=== PATIENT | female | born 1950 | race Caucasian/White ===

== ENCOUNTER → 2016-07-28 | Outpatient (CLI) | payer MEDICARE ==
[2016-07-28 07:31] LABS: MEAN CORPUSCULAR HEMOGLOBIN 30.9 pg (27.0-33.0); MEAN CORPUSCULAR VOLUME 93.7 fl (80.0-96.0); RED CELL DISTRIBUTION WIDTH 13.4 % (11.5-14.5); WHITE BLOOD COUNT 11.6 K/mm3 (4.0-10.0)
[2016-07-28 07:35] LABS: ALBUMIN 4.2 GM/DL (3.2-5.2); ALKALINE PHOSPHATASE 92 U/L (45-117); ALT/SGPT 22 U/L (12-78); ANION GAP 8 MEQ/L (8-16); AST/SGOT 30 U/L (15-37); BLOOD UREA NITROGEN 5 MG/DL (7-18); CALCIUM LEVEL 9.7 MG/DL (8.8-10.2); CARBON DIOXIDE LEVEL 33 MEQ/L (21-32); CHLORIDE LEVEL 93 MEQ/L (98-107); CREATININE FOR GFR 0.63 MG/DL (0.55-1.02); GLOMERULAR FILTRATION RATE > 60.0 (>45); GLUCOSE, FASTING 88 MG/DL (80-110); POTASSIUM SERUM 4.7 MEQ/L (3.5-5.1); SODIUM LEVEL 134 MEQ/L (136-145); TOTAL PROTEIN 7.7 GM/DL (6.4-8.2)
[2016-07-28 08:07] LABS: BASOPHILS 1 % (0-4); BLAST CELLS 1 % (0-0)
[2016-07-28 08:15] LABS: REASON FOR REVIEW OTHER
== END ==
LOC: M LAB 06:36
PROVIDERS: ATTEND Family Medicine
DX: D47.3 Essential (hemorrhagic) thrombocythemia (principal); D72.829 Elevated white blood cell count, unspecified; R71.8 Other abnormality of red blood cells; R17 Unspecified jaundice

== ENCOUNTER → 2017-04-09 | Outpatient (REF) | payer MEDICARE | LOC: M SFHCLERA 08:46 | PROVIDERS: ATTEND Family Medicine | DX: Z12.11 Encounter for screening for malignant neoplasm of colon (principal); Z53.8 Procedure and treatment not carried out for other reasons ==

== ENCOUNTER → 2017-04-13 | Outpatient (REF) | payer MEDICARE ==
[2017-04-13 14:44] LABS: REASON FOR REVIEW COMPREHENSIVE REVIEW
== END ==
LOC: M LAB REF 13:17
PROVIDERS: ATTEND Internal Medicine Medical Oncology
DX: D75.1 Secondary polycythemia (principal)

== ENCOUNTER → 2017-10-29 | Outpatient (CLI) | payer MEDICARE | LOC: M RAD 07:18 | DX: R91.8 Other nonspecific abnormal finding of lung field (principal) | CPT/HCPCS: 71250 ==

== ENCOUNTER → 2017-11-17 | Outpatient (CLI) | payer MEDICARE | LOC: M PLARAD 09:12 | DX: R91.1 Solitary pulmonary nodule (principal) | CPT/HCPCS: 78815 ==

== ENCOUNTER → 2017-12-11 | Outpatient (CLI) | payer MEDICARE ==
[2017-12-11 13:22] LABS: BASO % 0.1 % (0.0-1.0); EOS % 0.1 % (0.0-3.0); HEMATOCRIT 35.3 % (36.0-47.0); HEMOGLOBIN 12.9 g/dl (12.0-15.5); IMMATURE GRANULOCYTE % 0.5 % (0-3.0); LYMPH # 1.1 10^3/uL (1.5-4.5); LYMPH % 13.3 % (24.0-44.0); MEAN CORPUSCULAR HEMOGLOBIN 43.3 pg (27.0-33.0); MEAN CORPUSCULAR HGB CONC 36.5 g/dl (32.0-36.5); MONO # 0.4 10^3/uL (0.0-0.8); MONO % 4.5 % (0.0-5.0); NEUTROPHILS # 6.7 10^3/uL (1.8-7.7); NEUTROPHILS % 81.5 % (36.0-66.0); PLATELET COUNT, AUTOMATED 281 10^3/uL (150-450); RED BLOOD COUNT 2.98 10^6/uL (4.00-5.40); RED CELL DISTRIBUTION WIDTH 11.8 % (11.5-14.5); WHITE BLOOD COUNT 8.2 10^3/uL (4.0-10.0)
[2017-12-11 13:31] LABS: ADD MORPHOLOGY? YES; MEAN CORPUSCULAR VOLUME 118.5 fl (80.0-96.0); POSITIVE MORPH POS FLAG
[2017-12-11 13:44] LABS: INR 0.93; PROTHROMBIN TIME 12.5 SECONDS (12.4-14.5)
[2017-12-11 13:49] LABS: PLATELET ESTIMATE NORMAL (NORMAL)
[2017-12-11 13:50] LABS: POIKILOCYTOSIS 1+
[2017-12-16 10:36] LABS: URINE METANEPHRINES RANDOM 505 ug/L (Undefined); URINE NORMETANEPHRINES RANDOM 1620 ug/L (Undefined)
== END ==
LOC: M SMT 09:31
DX: R91.1 Solitary pulmonary nodule (principal); E27.8 Other specified disorders of adrenal gland
CPT/HCPCS: 83835

== ENCOUNTER → 2017-12-16 | Outpatient (CLI) | payer MEDICARE ==
[2017-12-20 16:30] LABS: METANEPHRINE PLASMA 68 pg/mL (0-62); NORMETANEPHRINE PLASMA 255 pg/mL (0-145)
== END ==
LOC: M LAB 06:26
DX: R91.1 Solitary pulmonary nodule (principal)
CPT/HCPCS: 83835

== ENCOUNTER 2017-12-23 11:31 | Inpatient (IN) | payer MEDICARE ==
[2017-12-23] MEDS: NS 1,000 ML IV ×4 (11:40→23:42)
[2017-12-23 11:56] LABS: HEMATOCRIT 31.4 % (36.0-47.0); HEMOGLOBIN 11.1 g/dl (12.0-15.5); MEAN CORPUSCULAR HGB CONC 35.4 g/dl (32.0-36.5); PLATELET COUNT, AUTOMATED 374 10^3/uL (150-450); RED BLOOD COUNT 2.64 10^6/uL (4.00-5.40); WHITE BLOOD COUNT 5.3 10^3/uL (4.0-10.0)
[2017-12-23] MEDS: ONDANSETRON 4MG/2ML VIAL (J2405) IV (11:57)
[2017-12-23 12:06] LABS: INR 0.89; PROTHROMBIN TIME 12.1 SECONDS (12.1-14.4)
[2017-12-23 12:07] LABS: PARTIAL THROMBOPLASTIN TIME 22.3 SECONDS (25.4-37.6)
[2017-12-23] MEDS: MORPHINE 2 MG/ML 1ML SYRINGE (J2270) IV ×2 (12:07→12:50)
[2017-12-23 12:10] LABS: MEAN CORPUSCULAR VOLUME 118.9 fl (80.0-96.0); POSITIVE MORPH POS FLAG
[2017-12-23 12:15] LABS: ANION GAP 8 MEQ/L (8-16); BLOOD UREA NITROGEN 6 MG/DL (7-18); CALCIUM LEVEL 8.9 MG/DL (8.8-10.2); CARBON DIOXIDE LEVEL 30 MEQ/L (21-32); CHLORIDE LEVEL 99 MEQ/L (98-107); CREATININE FOR GFR 0.51 MG/DL (0.55-1.30); GLOMERULAR FILTRATION RATE > 60.0 (>45); GLUCOSE, FASTING 138 MG/DL (70-100); POTASSIUM SERUM 3.3 MEQ/L (3.5-5.1); SODIUM LEVEL 137 MEQ/L (136-145)
[2017-12-23] MEDS ORDERED: ACETAMINOPHEN TAB 650MG DOSE (2X325MG) PO (14:15)
[2017-12-23] MEDS ORDERED: ONDANSETRON 4MG/2ML VIAL (J2405) IV (14:15)
[2017-12-23] MEDS ORDERED: BISACODYL 5 MG TAB PO (14:15)
[2017-12-23] MEDS ORDERED: MORPHINE 4 MG/ML 1ML VIAL/SYRINGE (J2270) IV (14:15)
[2017-12-23] MEDS ORDERED: IPRATROPIUM 0.5MG/ALBUTEROL 2.5MG INH SOL UD 3ML (DUONEB)(J7620) NEB (14:45)
[2017-12-23 15:43] LABS: HEMATOCRIT 25.1 % (36.0-47.0); HEMOGLOBIN 8.7 g/dl (12.0-15.5); MEAN CORPUSCULAR HEMOGLOBIN 41.8 pg (27.0-33.0); MEAN CORPUSCULAR HGB CONC 34.7 g/dl (32.0-36.5); PLATELET COUNT, AUTOMATED 288 10^3/uL (150-450); RED BLOOD COUNT 2.08 10^6/uL (4.00-5.40); WHITE BLOOD COUNT 7.4 10^3/uL (4.0-10.0)
[2017-12-23 15:58] LABS: MEAN CORPUSCULAR VOLUME 120.7 fl (80.0-96.0); POSITIVE MORPH POS FLAG
[2017-12-23] MEDS: POTASSIUM CHLORIDE 10 MEQ SR TABLET PO (17:35)
[2017-12-23 19:51] LABS: HEMATOCRIT 23.1 % (36.0-47.0); HEMOGLOBIN 8.2 g/dl (12.0-15.5); MEAN CORPUSCULAR HEMOGLOBIN 42.5 pg (27.0-33.0); MEAN CORPUSCULAR HGB CONC 35.5 g/dl (32.0-36.5); PLATELET COUNT, AUTOMATED 272 10^3/uL (150-450); RED BLOOD COUNT 1.93 10^6/uL (4.00-5.40); RED CELL DISTRIBUTION WIDTH 12.1 % (11.5-14.5); WHITE BLOOD COUNT 6.5 10^3/uL (4.0-10.0)
[2017-12-23 19:54] LABS: POSITIVE MORPH POS FLAG
[2017-12-23 19:55] LABS: MEAN CORPUSCULAR VOLUME 119.7 fl (80.0-96.0)
[2017-12-23] MEDS: SIMVASTATIN 40 MG TAB PO (20:20)
[2017-12-23] MEDS: CETIRIZINE (ZyrTEC) 10 MG TAB PO (20:20)
[2017-12-23] MEDS: SENOKOT S TAB PO (20:20)
[2017-12-24 02:01] LABS: HEMATOCRIT 22.7 % (36.0-47.0); HEMOGLOBIN 7.8 g/dl (12.0-15.5); MEAN CORPUSCULAR HEMOGLOBIN 41.9 pg (27.0-33.0); MEAN CORPUSCULAR HGB CONC 34.4 g/dl (32.0-36.5); PLATELET COUNT, AUTOMATED 266 10^3/uL (150-450); RED BLOOD COUNT 1.86 10^6/uL (4.00-5.40); RED CELL DISTRIBUTION WIDTH 12.4 % (11.5-14.5); WHITE BLOOD COUNT 6.2 10^3/uL (4.0-10.0)
[2017-12-24 02:03] LABS: POSITIVE MORPH POS FLAG
[2017-12-24 02:16] LABS: ANION GAP 6 MEQ/L (8-16); BLOOD UREA NITROGEN 8 MG/DL (7-18); CARBON DIOXIDE LEVEL 28 MEQ/L (21-32); CHLORIDE LEVEL 106 MEQ/L (98-107); CREATININE FOR GFR 0.47 MG/DL (0.55-1.30); GLOMERULAR FILTRATION RATE > 60.0 (>45); GLUCOSE, FASTING 82 MG/DL (70-100); POTASSIUM SERUM 4.6 MEQ/L (3.5-5.1); SODIUM LEVEL 140 MEQ/L (136-145)
[2017-12-24 02:17] LABS: CALCIUM LEVEL 8.1 MG/DL (8.8-10.2)
[2017-12-24 08:13] LABS: HEMATOCRIT 22.4 % (36.0-47.0); HEMOGLOBIN 7.8 g/dl (12.0-15.5); MEAN CORPUSCULAR HEMOGLOBIN 42.4 pg (27.0-33.0); MEAN CORPUSCULAR HGB CONC 34.8 g/dl (32.0-36.5); PLATELET COUNT, AUTOMATED 287 10^3/uL (150-450); RED BLOOD COUNT 1.84 10^6/uL (4.00-5.40); RED CELL DISTRIBUTION WIDTH 12.5 % (11.5-14.5); WHITE BLOOD COUNT 5.7 10^3/uL (4.0-10.0)
[2017-12-24 08:14] LABS: MEAN CORPUSCULAR VOLUME 121.7 fl (80.0-96.0); POSITIVE MORPH POS FLAG
[2017-12-24] MEDS: HYDROXYUREA 500 MG CAP PO (09:00)
[2017-12-24] MEDS: SENOKOT S TAB PO (09:00)
[2017-12-24] MEDS: CHLORTHALIDONE 25 MG TAB PO (09:32)
[2017-12-24] MEDS: NS 1,000 ML IV ×2 (09:58→20:04)
[2017-12-24 13:53] LABS: HEMATOCRIT 22.4 % (36.0-47.0); HEMOGLOBIN 7.9 g/dl (12.0-15.5); MEAN CORPUSCULAR HEMOGLOBIN 43.4 pg (27.0-33.0); MEAN CORPUSCULAR HGB CONC 35.3 g/dl (32.0-36.5); PLATELET COUNT, AUTOMATED 286 10^3/uL (150-450); RED BLOOD COUNT 1.82 10^6/uL (4.00-5.40); RED CELL DISTRIBUTION WIDTH 12.3 % (11.5-14.5); WHITE BLOOD COUNT 6.5 10^3/uL (4.0-10.0)
[2017-12-24 13:56] LABS: MEAN CORPUSCULAR VOLUME 123.1 fl (80.0-96.0); POSITIVE MORPH POS FLAG
[2017-12-24 20:00] LABS: HEMATOCRIT 20.7 % (36.0-47.0); HEMOGLOBIN 7.3 g/dl (12.0-15.5); MEAN CORPUSCULAR HEMOGLOBIN 42.7 pg (27.0-33.0); MEAN CORPUSCULAR HGB CONC 35.3 g/dl (32.0-36.5); PLATELET COUNT, AUTOMATED 288 10^3/uL (150-450); RED BLOOD COUNT 1.71 10^6/uL (4.00-5.40); RED CELL DISTRIBUTION WIDTH 12.3 % (11.5-14.5); WHITE BLOOD COUNT 5.9 10^3/uL (4.0-10.0)
[2017-12-24 20:06] LABS: MEAN CORPUSCULAR VOLUME 121.1 fl (80.0-96.0); POSITIVE MORPH POS FLAG
[2017-12-24] MEDS: SIMVASTATIN 40 MG TAB PO (20:11)
[2017-12-24] MEDS: CETIRIZINE (ZyrTEC) 10 MG TAB PO (20:11)
[2017-12-25 02:04] LABS: HEMOGLOBIN 7.3 g/dl (12.0-15.5); MEAN CORPUSCULAR HEMOGLOBIN 42.7 pg (27.0-33.0); MEAN CORPUSCULAR HGB CONC 34.8 g/dl (32.0-36.5); PLATELET COUNT, AUTOMATED 256 10^3/uL (150-450); RED BLOOD COUNT 1.71 10^6/uL (4.00-5.40); RED CELL DISTRIBUTION WIDTH 12.5 % (11.5-14.5); WHITE BLOOD COUNT 5.1 10^3/uL (4.0-10.0)
[2017-12-25 02:08] LABS: POSITIVE MORPH POS FLAG
[2017-12-25 02:09] LABS: MEAN CORPUSCULAR VOLUME 122.8 fl (80.0-96.0)
[2017-12-25] MEDS: NS 1,000 ML IV ×2 (06:02→16:09)
[2017-12-25 07:36] LABS: HEMATOCRIT 22.9 % (36.0-47.0); MEAN CORPUSCULAR HEMOGLOBIN 42.8 pg (27.0-33.0); MEAN CORPUSCULAR HGB CONC 34.9 g/dl (32.0-36.5); PLATELET COUNT, AUTOMATED 318 10^3/uL (150-450); RED BLOOD COUNT 1.87 10^6/uL (4.00-5.40); RED CELL DISTRIBUTION WIDTH 12.6 % (11.5-14.5); WHITE BLOOD COUNT 5.1 10^3/uL (4.0-10.0)
[2017-12-25] MEDS: CHLORTHALIDONE 25 MG TAB PO (08:12)
[2017-12-25] MEDS: HYDROXYUREA 500 MG CAP PO (08:12)
[2017-12-25 08:25] LABS: MEAN CORPUSCULAR VOLUME 122.5 fl (80.0-96.0); POSITIVE MORPH POS FLAG
[2017-12-25 12:14] LABS: HEMATOCRIT 20.8 % (36.0-47.0); HEMOGLOBIN 7.3 g/dl (12.0-15.5)
[2017-12-25 18:02] LABS: HEMATOCRIT 23.8 % (36.0-47.0); HEMOGLOBIN 8.2 g/dl (12.0-15.5)
[2017-12-25] MEDS: CETIRIZINE (ZyrTEC) 10 MG TAB PO (20:25)
[2017-12-25] MEDS: SIMVASTATIN 40 MG TAB PO (20:25)
[2017-12-25 23:50] LABS: HEMATOCRIT 20.1 % (36.0-47.0)
[2017-12-26] MEDS: NS 1,000 ML IV (01:45)
[2017-12-26 05:19] LABS: HEMATOCRIT 20.9 % (36.0-47.0); HEMOGLOBIN 7.2 g/dl (12.0-15.5); MEAN CORPUSCULAR HEMOGLOBIN 41.9 pg (27.0-33.0); MEAN CORPUSCULAR HGB CONC 34.4 g/dl (32.0-36.5); PLATELET COUNT, AUTOMATED 295 10^3/uL (150-450); RED BLOOD COUNT 1.72 10^6/uL (4.00-5.40); RED CELL DISTRIBUTION WIDTH 12.3 % (11.5-14.5); WHITE BLOOD COUNT 3.7 10^3/uL (4.0-10.0)
[2017-12-26 05:28] LABS: MEAN CORPUSCULAR VOLUME 121.5 fl (80.0-96.0); POSITIVE MORPH POS FLAG
[2017-12-26 05:34] LABS: ANION GAP 7 MEQ/L (8-16); BLOOD UREA NITROGEN 2 MG/DL (7-18); CALCIUM LEVEL 7.9 MG/DL (8.8-10.2); CARBON DIOXIDE LEVEL 29 MEQ/L (21-32); CHLORIDE LEVEL 107 MEQ/L (98-107); CREATININE FOR GFR 0.39 MG/DL (0.55-1.30); GLOMERULAR FILTRATION RATE > 60.0 (>45); GLUCOSE, FASTING 84 MG/DL (70-100); POTASSIUM SERUM 3.5 MEQ/L (3.5-5.1); SODIUM LEVEL 143 MEQ/L (136-145)
[2017-12-26] MEDS: CHLORTHALIDONE 25 MG TAB PO (08:09)
== END 2017-12-26 10:25 | disposition home or self-care (01) | DRG 920 ==
LOC: M ED 11:31 → M ED INP 14:09 → M PCU 16:13
DX: E89.810 Postprocedural hemorrhage of an endocrine system organ or structure following an endocrine system procedure (principal); D47.1 Chronic myeloproliferative disease; D62 Acute posthemorrhagic anemia; E27.8 Other specified disorders of adrenal gland; R91.8 Other nonspecific abnormal finding of lung field; Z88.1 Allergy status to other antibiotic agents; Z79.82 Long term (current) use of aspirin; Z79.899 Other long term (current) drug therapy; D45 Polycythemia vera; E78.5 Hyperlipidemia, unspecified; J44.9 Chronic obstructive pulmonary disease, unspecified; I10 Essential (primary) hypertension; Z88.8 Allergy status to other drugs, medicaments and biological substances; E87.6 Hypokalemia; R58 Hemorrhage, not elsewhere classified
CPT/HCPCS: 49180

== ENCOUNTER → 2017-12-23 | Outpatient (CLI) | payer MEDICARE ==
[~2017-12-23] MED LIST: ACETAMINOPHEN 325 MG TAB As Ordered; LIDOCAINE 1% MDV 20ML VIAL As Ordered
== END ==
LOC: M RADPRO 08:01
DX: E27.8 Other specified disorders of adrenal gland (principal); R91.8 Other nonspecific abnormal finding of lung field; K66.1 Hemoperitoneum; Z88.1 Allergy status to other antibiotic agents; Z79.82 Long term (current) use of aspirin; Z79.899 Other long term (current) drug therapy

== ENCOUNTER → 2018-01-01 | Outpatient (CLI) | payer MEDICARE | LOC: M RAD 06:49 | DX: R91.8 Other nonspecific abnormal finding of lung field (principal); J98.4 Other disorders of lung | CPT/HCPCS: 71250 ==

== ENCOUNTER → 2018-03-15 | Outpatient (CLI) | payer MEDICARE | LOC: M RAD 06:49 | DX: R91.1 Solitary pulmonary nodule (principal) | CPT/HCPCS: 71250 ==

== ENCOUNTER → 2018-06-03 | Outpatient (CLI) | payer MEDICARE | LOC: M RAD 06:48 | DX: R91.8 Other nonspecific abnormal finding of lung field (principal); J84.10 Pulmonary fibrosis, unspecified; I25.10 Atherosclerotic heart disease of native coronary artery without angina pectoris | CPT/HCPCS: 71250 ==

== ENCOUNTER → 2018-09-22 | Outpatient (CLI) | payer MEDICARE ==
[~2018-09-22] MED LIST changes: -ACETAMINOPHEN 325 MG TAB As Ordered; +ASPI1TAB PO; +CETI10TA PO; +CHLO25TA PO; +HYDR500C3; +HYDR500C3 PO; -LIDOCAINE 1% MDV 20ML VIAL As Ordered; +LOVA20TA2 PO; +LOVA40TA PO
--- NOTE | 2018-09-22 11:10 | REP ---
CT CHEST WITHOUT CONTRAST: HISTORY: Nonspecific abnormal lung field finding. Cough. Comparison is made with multiple prior chest CT studies, the most recent of which is from June 03, 2018 and a more remote of which is from April 17, 2017. A gradually enlarging spiculated thick-walled cavitary right lower lobe lesion has been present. TODAY'S CT FINDINGS: The thick-walled spiculated cavitary mass is again seen in the right lower lobe. Its current transverse dimensions are 5.6 x 5.2 cm, most recently 4.8 x 4.6 cm. There is some continued enlargement. Adjacent fibrotic spicules are seen extending to the posterolateral pleural surface. No satellite nodules appreciated. There is some coarse linear fibrosis in the right base which is unchanged. No bony destructive lesion is seen. No new pulmonary nodule or infiltrate is seen. Emphysematous changes and hyperinflation are noted. Vascular calcification is noted. No hilar or mediastinal mass or adenopathy is seen. The previously noted left adrenal mass has further enlarged. Most recent transverse dimensions were 3.7 x 3.[address]'s [address] study the left adrenal mass measures 5.0 x 3.8 cm. No right adrenal mass lesion is seen. There is an accessory splenule anterior to the spleen. No focal liver lesion is appreciated. IMPRESSION: Continued progressive enlargement of the left adrenal mass and right lower lobe lung mass. Electronically Signed by Yosef Monet MD 09/22/2018 03:56 P
== END ==
LOC: M RAD 07:52
PROVIDERS: ATTEND Internal Medicine Pulmonary Disease
DX: R91.8 Other nonspecific abnormal finding of lung field (principal); R05 Cough; J84.10 Pulmonary fibrosis, unspecified; E27.8 Other specified disorders of adrenal gland

== ENCOUNTER → 2018-10-11 | Outpatient (CLI) | payer MEDICARE ==
[~2018-10-11] MED LIST changes: -ASPI1TAB PO; +ASPI81TA26 PO
[2018-10-15 00:06] LABS: METANEPHRINE PLASMA 51 pg/mL (0-62); NORMETANEPHRINE PLASMA 257 pg/mL (0-145)
== END ==
LOC: M SMT 09:58
PROVIDERS: ATTEND Internal Medicine Pulmonary Disease
DX: R91.8 Other nonspecific abnormal finding of lung field (principal)

== ENCOUNTER → 2018-10-19 | Outpatient (CLI) | payer MEDICARE ==
[~2018-10-19] MED LIST changes: +ATIV1TAB10 PO
[2018-10-19 15:27] LABS: BLOOD UREA NITROGEN 7 MG/DL (7-18); CALCIUM LEVEL 9.4 MG/DL (8.8-10.2); CARBON DIOXIDE LEVEL 32 MEQ/L (21-32); CHLORIDE LEVEL 98 MEQ/L (98-107); CREATININE FOR GFR 0.54 MG/DL (0.55-1.30); GLOMERULAR FILTRATION RATE > 60.0 (>45); GLUCOSE, FASTING 88 MG/DL (70-100); POTASSIUM SERUM 4.5 MEQ/L (3.5-5.1); SODIUM LEVEL 136 MEQ/L (136-145)
== END ==
LOC: M SMT 10:18
PROVIDERS: ATTEND Urology
DX: E27.9 Disorder of adrenal gland, unspecified (principal)
CPT/HCPCS: 36415; 80048; G0463

== ENCOUNTER → 2018-10-25 | Outpatient (CLI) | payer MEDICARE ==
[~2018-10-25] MED LIST changes: -ATIV1TAB10 PO; +ISOVUE-370 76% 100ML VIAL (Q9967) As Ordered ONE
--- NOTE | 2018-10-25 17:02 | REP ---
REASON: Adrenal gland mass. The latest prior or images obtained during chest CT 09/22/2018 which were reviewed along with older prior abdominal CT's. The examination was performed before and after intravenous contrast. CONTRAST: 100 mL Isovue-370. The lung bases are unchanged from the prior chest CT. The precontrast enhanced Hounsfield unit readings of the large left adrenal gland mass which measures approximately 5.6 x 4.7 x 4.4 cm are consistently high. All recent literature indicate that the highest Hounsfield unit reading on precontrast imaging to indicate benignity of adrenal glands nodules is a positive 16. Although there is some debate on how high this noncontrast enhanced reading can go and still indicate benignity, it is clear that as density increases so do the possibility of malignancy when assessing precontrast enhanced images. The contrast enhanced portion of today's examination shows mixed peripheral enhancement with no evidence of significant internal enhancement when Hounsfield unit readings are compared to precontrast imaging. There is no paraaortic adenopathy. There is no free fluid or free air. The liver, gallbladder, spleen, pancreas, right adrenal gland and kidney's are within normal limits. The bowel loops and their mesenteries are within normal limits. CT PELVIS: There is no free fluid or free air. There is no mass or adenopathy. The bowel loops and their mesenteries are within normal limits. Bone window technique throughout the examination shows the osseous structures to be stable and intact. Spinal degenerative changes are present. IMPRESSION: Large left adrenal gland mass as described above. The lack of evidence of significant contrast enhancement does not obviate biopsy or further assessment. This was discussed in detail above. Electronically Signed by Arvin Boyd DO 10/25/2018 06:05 P
== END ==
LOC: M RAD 07:54
PROVIDERS: ATTEND Urology
DX: E27.8 Other specified disorders of adrenal gland (principal)
CPT/HCPCS: 74178; Q9967

== ENCOUNTER → 2018-11-24 | Outpatient (REF) | payer MEDICARE ==
[~2018-11-24] MED LIST changes: +ATIV1TAB10 PO; -ISOVUE-370 76% 100ML VIAL (Q9967) As Ordered ONE
[2018-11-24 12:17] LABS: SODIUM,RANDOM URINE 45 MEQ/L
[2018-11-24 12:26] LABS: BLOOD UREA NITROGEN 8 MG/DL (7-18); CALCIUM LEVEL 9.2 MG/DL (8.8-10.2); CARBON DIOXIDE LEVEL 30 MEQ/L (21-32); CHLORIDE LEVEL 100 MEQ/L (98-107); CREATININE FOR GFR 0.44 MG/DL (0.55-1.30); GLOMERULAR FILTRATION RATE > 60.0 (>45); GLUCOSE, FASTING 87 MG/DL (70-100); POTASSIUM SERUM 4.9 MEQ/L (3.5-5.1); SODIUM LEVEL 136 MEQ/L (136-145)
[2018-11-24 12:54] LABS: OSMOLALITY SERUM 281 MOSM/KG (280-301)
[2018-11-24 12:55] LABS: OSMOLALITY URINE 578 MOSM/KG (500-800)
== END ==
LOC: M SFHCLERA 08:19
PROVIDERS: ATTEND Family Medicine
DX: E87.1 Hypo-osmolality and hyponatremia (principal)

== ENCOUNTER 2018-11-30 07:21 | Inpatient (IN) | payer MEDICARE ==
[~2018-11-30] VITALS: Ht 152.4 cm; Wt 43.1 kg
[~2018-11-30 07:21] MED LIST changes: +LR 1,000 ML IV ONE
[2018-11-30] MEDS ORDERED: fentaNYL 250 MCG/5 ML INJECTION (J3010) As Ordered ONE (07:22)
[2018-11-30] MEDS ORDERED: ROCURONIUM BROMIDE 50 MG/5 ML VIAL As Ordered ONE ×2 (07:22→11:27)
[2018-11-30] MEDS ORDERED: MIDAZOLAM INJ 2 MG/2 ML VIAL (J2250) As Ordered ONE (07:22)
[2018-11-30] MEDS ORDERED: LIDOCAINE 2% INJ 100 MG/5 ML SDV (FOR ANES.) As Ordered ONE (07:22)
[2018-11-30] MEDS ORDERED: PROPOFOL 200 MG/20 ML VIAL As Ordered ONE (07:22)
[2018-11-30] MEDS ORDERED: ONDANSETRON 4MG/2ML VIAL (J2405) IV PRN ×2 (08:45→14:30)
[2018-11-30] MEDS ORDERED: ACETAMINOPHEN TAB 650MG DOSE (2X325MG) PO PRN (08:45)
[2018-11-30] MEDS ORDERED: MORPHINE 4 MG/ML 1ML VIAL/SYRINGE (J2270) IV PRN (08:45)
[2018-11-30] MEDS ORDERED: PERCOCET 5MG/325MG TAB PO PRN ×2 (08:45→14:30)
[2018-11-30] MEDS ORDERED: ETOMIDATE INJ 20MG/10ML VIAL As Ordered ONE (08:58)
[2018-11-30] MEDS ORDERED: PHENYLEPHRINE INJ 10MG/ML VIAL (J2370) As Ordered ONE ×2 (08:59→09:00)
[2018-11-30] MEDS ORDERED: LIDOCAINE 1% SDV INJ 30 ML VIAL As Ordered ONE (09:07)
[2018-11-30] MEDS ORDERED: BUPIVACAINE HCL 0.25% 30 ML VIAL As Ordered ONE (09:07)
[2018-11-30] MEDS ORDERED: PHENYLephrine HCL 500 MCG/5 ML (100MCG/ML) SYRINGE (J2370) As Ordered ONE (09:50)
[2018-11-30] MEDS ORDERED: ePHEDrine SULFATE 25 MG/5 ML(5MG/ML) SYRINGE As Ordered ONE (09:50)
[2018-11-30] MEDS ORDERED: dexameTHASONE 4 MG/ML 1ML VIAL (J1100) As Ordered ONE (09:50)
[2018-11-30] MEDS ORDERED: ESMOLOL INJ 100MG/10ML VIAL As Ordered ONE (10:04)
[2018-11-30] MEDS ORDERED: LABETALOL HCL 100 MG/20 ML VIAL As Ordered ONE (10:10)
[2018-11-30] MEDS ORDERED: HYDROmorphone HCL 2 MG/ML 1ML VIAL (J1170) As Ordered ONE (10:58)
[2018-11-30] MEDS ORDERED: ONDANSETRON 4MG/2ML VIAL (J2405) As Ordered ONE (11:34)
[2018-11-30] MEDS ORDERED: NEOSTIGMINE 10 MG/10 ML VIAL (J2710) As Ordered ONE ×2 (11:34→11:35)
[2018-11-30] MEDS ORDERED: KETOROLAC 60 MG/2 ML VIAL (J1885) As Ordered ONE (11:34)
[2018-11-30] MEDS ORDERED: GLYCOPYRROLATE INJ 0.2 MG/ML 2 ML VIAL As Ordered ONE (11:35)
[2018-11-30] MEDS ORDERED: METOCLOPRAMIDE INJ 10MG/2ML VIAL (J2765) As Ordered ONE (11:40)
[2018-11-30] MEDS ORDERED: MORPHINE 10 MG/ML 1ML VIAL (J2270) IV PRN (14:30)
[2018-11-30] MEDS ORDERED: fentaNYL 100 MCG/2 ML INJECTION (J3010) IV PRN (14:30)
[2018-11-30] MEDS ORDERED: LR 1,000 ML IV SCH (14:30)
--- NOTE | 2018-11-30 14:53 | ROOPDOC ---
[facility] Report Of Operation Report of Operation DATE OF PROCEDURE: 11/30/18 PREPROCEDURE DIAGNOSES: Left Adrenal Neoplasm. POSTPROCEDURE DIAGNOSES: Left Adrenal Neoplasm. PROCEDURE: Left Robotic-assisted Laparoscopic Radical Adrenalectomy. SURGEON: Sneha Hidalgo MD MANUFACTURING JOB TITLES: Chloe Gutierrez NP ANESTHESIA: General OPERATIVE INDICATIONS: This is a 67 year old female with a 5cm enhancing left adrenal mass, here for the above procedure. DESCRIPTION OF PROCEDURE: The patient was brought to the operating room and general anesthesia was induced. Prophylactic antibiotics were infused. A Hill catheter was placed under sterile conditions. The patient was then placed in the right lateral decubitus position. All pressure points were appropriately padded and an axillary roll was placed. She was secured to the table with tape. The patient was then prepped and draped in the usual sterile fashion. The initial incision was for an 8mm port in line with the 11th rib along the lateral rectus margin. A Veress needle was then utilized to achieve the pneumoperitoneum. An 8mm port was then placed in through this incision and through which the camera was inserted. There were no injuries from Veress needle placement or initial trocar placement. The remaining ports were then placed under vision. The left hand robotic port was placed along the costal margin. Another 8mm robotic port was placed just inferior to the camera port, also on the lateral rectus margin. The right hand robotic port was placed between the anterior-superior iliac spine and the umbilicus. A 12mm logistics assistant port was placed inferior and medial to the camera port. The robot was then docked. We began by releasing adhesions between the left colon and the anterior abdominal wall. Next the left colon was dissected off of Gerota's fascia. At this point the gonadal was identified. It was dissected cephalad to the point where it inserted into the left renal vein. The left renal vein was then carefully dissected. Of note the large left adrenal mass readily seen upon entering the abdomen. I then dissected out 3 left adrenal veins while dissecting out the adrenal gland and mass. This was challenging due to a large amount of tissue edema and inflammation surrounding the adrenal gland. Each adrenal vein was then ligated with Weck clips and the Harmonic scalpel. Two Weck clips were left on the stay side each time. Once all the veins were taken, the left adrenal gland was then dissected on all sides using electrocautery and the Harmonic scalpel until it was completely free. The left adrenal mass appeared to be confined to the adrenal gland. Once the left adrenal was free, it was placed in an Endocatch bag for retrieval. The area of resection was then irrigated with normal saline and Elvira hemostatic agent was applied to the operative field. Hemostasis was excellent. Once done, the robot was undocked. We then extended the logistics assistant port site incision and dissected down to the fascia. The fascia was then extended using electrocautery. The muscle was bluntly spread. The specimen was then extracted through this incision. It was handed off the table to send for pathology. We then closed the fascia of the extraction incision using a running #0 Vicryl suture. At this point, the abdomen was reinsufflated and we looked back in with the camera and there was no bleeding underneath the extraction site. No abdominal contents were caught within the closure either. We then removed all the ports under direct vision and there was no bleeding from any of the port sites. The subcutaneous tissue of the extraction incision was then reapproximated using interrupted #3-0 Vicryl suture. We then closed the skin of each site using a running #4-0 subcuticular Monocryl stitch. Local anesthetic was then applied to each incision and Dermabond was then applied and this marked the conclusion of the procedure. The patient was then taken out of the left lateral decubitus position, awakened from anesthesia and transported to the recovery room in stable condition. ESTIMATED BLOOD LOSS: 5 mL INTRAOPERATIVE COMPLICATIONS: None SPECIMENS: Left adrenal gland PLAN: The patient will be admitted to the hospital postoperatively and she will likely be discharged home within the next 1-2 days. SNEHA HIDALGO MD Nov 30, 2018 14:53
[2018-11-30 14:55] LABS: BLOOD UREA NITROGEN 13 MG/DL (7-18); CALCIUM LEVEL 9.2 MG/DL (8.8-10.2); CARBON DIOXIDE LEVEL 25 MEQ/L (21-32); CHLORIDE LEVEL 102 MEQ/L (98-107); CREATININE FOR GFR 0.58 MG/DL (0.55-1.30); GLOMERULAR FILTRATION RATE > 60.0 (>45); GLUCOSE, FASTING 155 MG/DL (70-100); POTASSIUM SERUM 4.8 MEQ/L (3.5-5.1); SODIUM LEVEL 135 MEQ/L (136-145)
[2018-11-30 15:01] LABS: HEMATOCRIT 38.4 % (36.0-47.0); HEMOGLOBIN 12.8 g/dl (12.0-15.5); MEAN CORPUSCULAR HEMOGLOBIN 39.3 pg (27.0-33.0); MEAN CORPUSCULAR HGB CONC 33.3 g/dl (32.0-36.5); PLATELET COUNT, AUTOMATED 567 10^3/uL (150-450); RED BLOOD COUNT 3.26 10^6/uL (4.00-5.40); WHITE BLOOD COUNT 7.9 10^3/uL (4.0-10.0)
[2018-11-30 15:16] VITALS: BP 145/90
[2018-11-30 15:16] LABS: MEAN CORPUSCULAR VOLUME 117.8 fl (80.0-96.0)
[2018-11-30] MEDS: NS 1,000 ML IV SCH ×2 (15:27→17:50)
[2018-11-30] MEDS: DOCUSATE SODIUM 100 MG CAP PO SCH ×2 (15:28→22:18)
[2018-11-30] MEDS: HEPARIN SOD (PORCINE) 5000 UNITS/ML VIAL SC SCH ×2 (15:28→22:18)
[2018-11-30 15:38] VITALS: BP 135/66
[2018-11-30 17:03] VITALS: BP 145/72
[2018-11-30] MEDS: ceFAZolin SOD 1 GM in D5W MINI-BAG PLUS 50 ML IV SCH (17:50)
[2018-11-30 17:51] VITALS: BP 146/73
[2018-11-30 18:41] VITALS: BP 146/74
[2018-11-30 20:00] VITALS: BP 147/74
[2018-12-01] VITALS (7 sets, daily range): BP systolic 93–147; BP diastolic 52–72
[2018-12-01] MEDS: NS 1,000 ML IV SCH (02:21)
[2018-12-01] MEDS: ceFAZolin SOD 1 GM in D5W MINI-BAG PLUS 50 ML IV SCH (02:21)
[2018-12-01] MEDS: PERCOCET 5MG/325MG TAB PO PRN ×2 (02:21→08:32)
[2018-12-01] MEDS: HEPARIN SOD (PORCINE) 5000 UNITS/ML VIAL SC SCH ×3 (05:16→20:59)
[2018-12-01 06:00] LABS: HEMATOCRIT 34.3 % (36.0-47.0); HEMOGLOBIN 11.7 g/dl (12.0-15.5); MEAN CORPUSCULAR HEMOGLOBIN 39.3 pg (27.0-33.0); MEAN CORPUSCULAR HGB CONC 34.1 g/dl (32.0-36.5); PLATELET COUNT, AUTOMATED 585 10^3/uL (150-450); RED BLOOD COUNT 2.98 10^6/uL (4.00-5.40); WHITE BLOOD COUNT 7.9 10^3/uL (4.0-10.0)
[2018-12-01 06:05] LABS: MEAN CORPUSCULAR VOLUME 115.1 fl (80.0-96.0)
[2018-12-01 06:31] LABS: BLOOD UREA NITROGEN 10 MG/DL (7-18); CALCIUM LEVEL 7.8 MG/DL (8.8-10.2); CARBON DIOXIDE LEVEL 24 MEQ/L (21-32); CHLORIDE LEVEL 103 MEQ/L (98-107); CREATININE FOR GFR 0.47 MG/DL (0.55-1.30); GLOMERULAR FILTRATION RATE > 60.0 (>45); GLUCOSE, FASTING 90 MG/DL (70-100); POTASSIUM SERUM 3.8 MEQ/L (3.5-5.1); SODIUM LEVEL 136 MEQ/L (136-145)
--- NOTE | 2018-12-01 07:39 | IPNPDOC ---
Subjective Review oF Systems Chief Complaint The patient is a 68-year-old female admitted with a reason for visit of Left Adrenal Mass. Events since Last Encounter Patient started having difficulty word-finding/slurred speech o/n and through this morning. Her notes that this has happened on and off for the past month but seems more exaggerated this morning. They have not alerted anyone of this prior to this morning. She notes that her pain is not well-controlled, but her pain medications have been limited given the difficulty talking. She has not ambulated yet. Denies n/v. No f/c/ns. Objective Physical Examination General Exam: Cooperative, No Acute Distress Heart Exam: Positive: Regular Rhythm ABDOMEN EXAM: Soft, Tenderness (mild), Other (incisions clean/dry/intact) Skin Exam: Nl turgor and temperature Neuro Exam: Sensation Intact; No: Normal Speech Psych Exam: Other; No: Mental status NL Other physical findings oriented x2 (could not recall what year it is) Vital Signs/I&O Vital Signs Date Time Temp Pulse Resp B/P (MAP) Pulse Ox O2 Delivery O2 Flow Rate FiO2 12/01/18 06:00 98.1 92 22 135/67 (89) 97 3.0 I&O- Last 24 Hours up to 6 AM 12/01/18 06:00 Intake Total 2750 ml Output Total 1705 ml Balance 1045 ml Laboratory Data Labs 24H Laboratory Tests 2 11/30/18 14:18: Nucleated Red Blood Cells % (auto) 0.0, Anion Gap 8, Glomerular Filtration Rate > 60.0, Blood Urea Nitrogen 13, Creatinine 0.58, Sodium Level 135L, Potassium Level 4.8, Chloride Level 102, Carbon Dioxide Level 25, Calcium Level 9.2 12/01/18 05:34: Nucleated Red Blood Cells % (auto) 0.0, Anion Gap 9, Glomerular Filtration Rate > 60.0, Blood Urea Nitrogen 10, Creatinine 0.47L, Sodium Level 136, Potassium Level 3.8#, Chloride Level 103, Carbon Dioxide Level 24, Calcium Level 7.8#L CBC/BMP Laboratory Tests 11/30/18 14:18 Red Blood Count 3.26 L, Mean Corpuscular Volume 117.8 H, Mean Corpuscular Hemoglobin 39.3 H, Mean Corpuscular Hemoglobin Concent 33.3, Red Cell Distribution Width 13.3, Calcium Level 9.2 12/01/18 05:34 Red Blood Count 2.98 L, Mean Corpuscular Volume 115.1 H, Mean Corpuscular Hemoglobin 39.3 H, Mean Corpuscular Hemoglobin Concent 34.1, Red Cell Distribution Width 13.3, Calcium Level 7.8 #L Assessment/Plan Date Seen The patient was seen on 12/01/18. Patient Summary This is a 68 y/o F POD2 s/p left robotic radical adrenalectomy. She is having difficulty w/ word finding and/or slurred speech this morning, which per report from her has happened on and off for the past month, just not this severe. Her labs and vitals are w/i normal limits. Plan/VTE VTE Prophylaxis Ordered?: Yes VTE Exclusion Mechanical Proph: N/A:VTE Prophy Ordered VTE Exclusion Pharmacological: N/A:VTE Prophy Ordered Plan/Urinary Catheter Urinary Catheter: D/C Hill Plan - hospitalist consulted re AMS/slurred speech - d/c catheter - d/c IVF - strict I/Os - percocet prn pain - continue hydroxyurea - SCDs when in bed - ambulate as tolerated - SQH - incentive spirometry - clear liquid diet -> advance as tolerated SNEHA HIDALGO MD Dec 01, 2018 07:39
[2018-12-01] MEDS: DOCUSATE SODIUM 100 MG CAP PO SCH ×2 (08:32→19:57)
[2018-12-01] MEDS: HYDROXYUREA 500 MG CAP PO SCH (08:32)
[2018-12-01] MEDS ORDERED: PROHANCE 279.3MG/ML 5ML VIAL (A9576) As Ordered ONE (12:14)
--- NOTE | 2018-12-01 13:22 | HPEPDOC ---
General Date of Admission Nov 30, 2018 at 07:21 Date of Service: Dec 01, 2018 Attending Physician: SNEHA HIDALGO MD Chief Complaint The patient is a 68-year-old female admitted with a reason for visit of Left Adrenal Mass. Source: Patient, Family, Old records Exam Limitations: No limitations Severity: Moderate History of Present Illness Consultation Report Consultation requested By Dr Hidalgo Consultation for difficulty in speech. History of present illness: This is a 68 year old female with PMH of Polycythemia vera from 2017, cavitary spiculated lesion in right lower lobe hypermetabolic in PET scan ( infective/ fungal /malignant) following with pulmonary, left adrenal hypermetabolic mass, daily alcohol use ( 4 beers), smoker, anxiety, hyperlipidemia admitted to the hospital for elective left adrenalectomy. Had surgery on 11/30/18 and this am complained to the urologist that she has been having trouble speaking for the last 3 to 4 weeks and trouble finding words. So the hospitalist service was consulted. As per the her volume of speech has been really low for the past 2 to 3 weeks. This was not associated with any jibberrish speech or use of nonsense words or sounds. No problem in getting the words out or any word finding difficulty. There has been no problem in understanding written words. has not noticed any repetitions of the same words again and again. There has been no weakness in any of the limbs. No difficulty in swallowing or hoarseness of voice. Patient is not very communicative this morning. Says she is still in quite a bit of pain in her surgical site. Home Medications Scheduled Aspirin (Aspirin EC) 81 Mg Tab, 81 MG PO DAILY for pain, (Reported) Hydroxyurea (Hydroxyurea) 500 Mg Cap, 1 CAP PO DAILY, (Reported) Lovastatin (Lovastatin) 40 Mg Tab, 40 MG PO QHS, (Reported) Scheduled PRN Lorazepam (Ativan) 0.5 Mg Tablet, 0.5 MG PO ONCE PRN for ANXIETY take one tab prior to biopsy may repeat Allergies Coded Allergies: sulfamethoxazole (Verified Adverse Reaction, Intermediate, nausea/vomittin, lethargy, 11/30/18) trimethoprim (Verified Adverse Reaction, Intermediate, nausea/vomiting, lethargy, 11/30/18) Past Medical History Medical History Polycythemia vera from 2017, cavitary spiculated lesion in right lower lobe hypermetabolic in PET scan ( infective/ fungal /malignant) following with pulmonary, left adrenal hypermetabolic nodule, daily alcohol use ( 4 beers), smoker, anxiety, hyperlipidemia Surgical History Left Robotic-assisted Laparoscopic Radical Adrenalectomy on 11/30/18 Family History Significant Family History: Cancer (sister lung cancer, 1 year ago) Social History * Smoker: current smoker, less than 1 pack/day Alcohol: heavy (daily 4 beers.) Drugs: denies A-FIB/CHADSVASC A-FIB History Current/History of A-Fib/PAF?: No Review of Systems Constitutional: Reports: Weakness, Fatigue, Weight Loss; Denies: Chills, Fever, Night Sweats Eyes: Denies: Pain, Vision change ENT: Denies: Head Aches, Ear Pain, Dysphagia Skin: Denies: Rash, Lesions, Breakdown Pulmonary: Denies: Dyspnea, Cough Cardiovascular: Denies: Chest Pain, Palpitations, Orthopnea, Paroxysmal Noc. Dyspnea, Lt Headedness Gastrointestinal: Reports: Abdominal Pain; Denies: Nausea, Vomiting, Diarrhea Genitourinary: Denies: Dysuria, Frequency, Incontinence, Retention Hematologic: Denies: Bruising, Bleeding Excessively Neurological: Reports: Change in speech; Denies: Numbness, Incoordination, Confusion, Seizures Psych: Reports: Anxiety Physical Examination General Exam: Positive: Alert, Cooperative, Mild Distress Eye Exam: Positive: Conjunctiva & lids normal; Negative: Sclera icteric ENT Exam: Positive: Atraumatic, Mucous membr. moist/pink, Pharynx Normal Neck Exam: Positive: Supple; Negative: JVD, thyromegaly Chest Exam: Positive: Clear to auscultation, Normal air movement Heart Exam: Positive: Rate Normal, Regular Rhythm, Normal S1, Normal S2; Negative: Murmurs, Rubs Abdomen Exam: Positive: BS Hypoactive, Soft, Tenderness Extremity Exam: Positive: Normal pulses; Negative: Clubbing, Cyanosis, Edema Skin Exam: Positive: Nl turgor and temperature; Negative: Breakdown, Lesion Neuro Exam: Positive: Normal Gait, Strength at 5/5 X4 ext, Normal Tone, Sensation Intact, Other (low volume speech) Psych Exam: Positive: Anxiety Vital Signs Vital Signs Date Time Temp Pulse Resp B/P (MAP) Pulse Ox O2 Delivery O2 Flow Rate FiO2 12/01/18 10:17 98.2 94 23 121/60 (80) 93 3.0 Laboratory Data Labs 24H Laboratory Tests 2 11/30/18 14:18: Nucleated Red Blood Cells % (auto) 0.0, Anion Gap 8, Glomerular Filtration Rate > 60.0, Blood Urea Nitrogen 13, Creatinine 0.58, Sodium Level 135L, Potassium Level 4.8, Chloride Level 102, Carbon Dioxide Level 25, Calcium Level 9.2 12/01/18 05:34: Nucleated Red Blood Cells % (auto) 0.0, Anion Gap 9, Glomerular Filtration Rate > 60.0, Blood Urea Nitrogen 10, Creatinine 0.47L, Sodium Level 136, Potassium Level 3.8#, Chloride Level 103, Carbon Dioxide Level 24, Calcium Level 7.8#L CBC/BMP Laboratory Tests 11/30/18 14:18 Red Blood Count 3.26 L, Mean Corpuscular Volume 117.8 H, Mean Corpuscular Hemoglobin 39.3 H, Mean Corpuscular Hemoglobin Concent 33.3, Red Cell Distribution Width 13.3, Calcium Level 9.2 12/01/18 05:34 Red Blood Count 2.98 L, Mean Corpuscular Volume 115.1 H, Mean Corpuscular He moglobin 39.3 H, Mean Corpuscular Hemoglobin Concent 34.1, Red Cell Distribution Width 13.3, Calcium Level 7.8 #L Assessment/Plan This is a 68 year old female with PMH of Polycythemia vera from 2017, cavitary spiculated lesion in right lower lobe hypermetabolic in PET scan ( infective/ fungal /malignant) following with pulmonary, left adrenal hypermetabolic nodule, daily alcohol use ( 4 beers), smoker, anxiety, hyperlipidemia admitted to the hospital for elective left adrenalectomy. Had surgery on 11/30/18 and this am complained to the urologist that she has been having trouble speaking for the last 3 to 4 weeks and trouble finding words. So the hospitalist service was consulted. Speech abnormality with h/o adrenal mass and lung mass will get MRI of brain with contrast to rule out any mets. will also get an ABG Polycythemia vera continue hydroxyuria S/P left radical adrenalectomy for adrenal mass possibly malignant Pulmonary cavitary lesion spiculated infective vs fungal vs malignant following with Dr Sears hyperlipidemia continue statin Protein calorie malnutrition BMI 18.6, temporal wasting due to underlying cancer and alcohol use significant amount. will monitor for alcohol withdrawal. Smoker counselled about quitting offered nicotine patch. pt refused at this time. Plan / VTE VTE Prophylaxis Ordered?: Yes VTE Exclusion Mechanical Proph: N/A:VTE Prophy Ordered VTE Exclusion Pharmacological: N/A:VTE Prophy Ordered Plan / Urinary Catheter Urinary Catheter: D/C ANDREY Rosales MD Dec 01, 2018 13:13
--- NOTE | 2018-12-01 13:23 | REP ---
MR BRAIN WITHOUT AND WITH CONTRAST: HISTORY: Metastasis. CONTRAST: ProHance 10 mL. A ring enhancing mass is present in the left parietal lobe. The mass measures 3.8 cm in transverse by 3.7 cm in AP by 3.4 cm in cephalocaudal dimensions. Surrounding edema is present. There is mass effect with partial effacement of the overlaying cortical sulci and body of the left lateral ventricle. There is no midline shift. A 7 mm ring enhancing mass is present in the right temporal lobe. Areas of increased signal intensity on T2-weighted images are present in the periventricular and subcortical white matter. This represents small vessel ischemic disease. There is no intraparenchymal hemorrhage, infarct, or midline shift. The ventricular system and cortical sulci are dilated consistent with mild volume loss. There is no extracerebral collection. The sinuses are clear. IMPRESSION: 1. There is a 3.8 cm ring enhancing metastasis in the left parietal lobe. There is mass effect without midline shift. There is a small 7 mm ring enhancing metastasis in the right temporal lobe. 2. Small vessel ischemic disease. 3. Mild volume loss. Electronically Signed by Moises Scales MD 12/01/2018 01:28 P
[2018-12-01] MEDS ORDERED: dexameTHASONE 20 MG/5 ML VIAL (J1100) IV ONE (16:00)
[2018-12-01] MEDS: PANTOPRAZOLE 40MG INJ (PROTONIX) (C9113) IV SCH (17:20)
[2018-12-02] MEDS: dexameTHASONE 4 MG/ML 1ML VIAL (J1100) IV SCH ×4 (00:41→18:33)
[2018-12-02 02:00] VITALS: BP 121/60
[2018-12-02 06:00] VITALS: BP 130/65
[2018-12-02] MEDS: HEPARIN SOD (PORCINE) 5000 UNITS/ML VIAL SC SCH ×3 (06:08→20:33)
[2018-12-02] MEDS: PANTOPRAZOLE 40MG INJ (PROTONIX) (C9113) IV SCH ×2 (06:08→18:33)
[2018-12-02] MEDS: PERCOCET 5MG/325MG TAB PO PRN ×4 (06:12→18:34)
[2018-12-02 06:21] LABS: HEMATOCRIT 34.1 % (36.0-47.0); HEMOGLOBIN 11.8 g/dl (12.0-15.5); MEAN CORPUSCULAR HEMOGLOBIN 38.1 pg (27.0-33.0); MEAN CORPUSCULAR HGB CONC 34.6 g/dl (32.0-36.5); PLATELET COUNT, AUTOMATED 608 10^3/uL (150-450); WHITE BLOOD COUNT 13.1 10^3/uL (4.0-10.0)
[2018-12-02 06:52] LABS: BLOOD UREA NITROGEN 11 MG/DL (7-18); CALCIUM LEVEL 9.1 MG/DL (8.8-10.2); CARBON DIOXIDE LEVEL 26 MEQ/L (21-32); CHLORIDE LEVEL 100 MEQ/L (98-107); CREATININE FOR GFR 0.46 MG/DL (0.55-1.30); GLOMERULAR FILTRATION RATE > 60.0 (>45); GLUCOSE, FASTING 98 MG/DL (70-100); POTASSIUM SERUM 3.8 MEQ/L (3.5-5.1); SODIUM LEVEL 134 MEQ/L (136-145)
--- NOTE | 2018-12-02 07:32 | IPNPDOC ---
Subjective Review oF Systems Chief Complaint The patient is a 68-year-old female admitted with a reason for visit of Left Adrenal Mass. Events since Last Encounter Patient continues to have difficulty word finding this morning. Her incisional pain is a little better. She is ambulating fine and tolerating a regular diet. No flatus yet. No f/c/ns. Objective Physical Examination General Exam: Cooperative, No Acute Distress Heart Exam: Positive: Regular Rhythm ABDOMEN EXAM: Soft, Tenderness (mild), Other (incisions clean/dry/intact) Skin Exam: Nl turgor and temperature Neuro Exam: No: Normal Speech Psych Exam: Other; No: Mental status NL Vital Signs/I&O Vital Signs Date Time Temp Pulse Resp B/P (MAP) Pulse Ox O2 Delivery O2 Flow Rate FiO2 12/02/18 06:45 16 12/02/18 06:00 97.8 81 130/65 (86) 95 12/01/18 10:17 3.0 I&O- Last 24 Hours up to 6 AM 12/02/18 06:00 Intake Total 1295 ml Output Total 300 ml Balance 995 ml Laboratory Data Labs 24H Laboratory Tests 2 12/02/18 05:53: Nucleated Red Blood Cells % (auto) 0.0, Anion Gap 8, Glomerular Filtration Rate > 60.0, Blood Urea Nitrogen 11, Creatinine 0.46L, Sodium Level 134L, Potassium Level 3.8, Chloride Level 100, Carbon Dioxide Level 26, Calcium Level 9.1# CBC/BMP Laboratory Tests 12/02/18 05:53 Red Blood Count 3.10 L, Mean Corpuscular Volume 110.0 H, Mean Corpuscular Hemoglobin 38.1 H, Mean Corpuscular Hemoglobin Concent 34.6, Red Cell Distribution Width 13.2, Calcium Level 9.1 # Assessment/Plan Date Seen The patient was seen on 12/02/18. Patient Summary This is a 68 y/o F POD2 s/p left robotic radical adrenalectomy, now having slurred speech. MRI of the brain yesterday was notable for a 3.8cm ring enhancing mass is in the left parietal lobe and a 7mm ring enhancing mass in the right temporal lobe. This was discussed w/ the patient and her in detai l this morning. From the surgical standpoint she is doing well - acceptable postop pain and abdomen is unremarkable. Plan/VTE VTE Prophylaxis Ordered?: Yes VTE Exclusion Mechanical Proph: N/A:VTE Prophy Ordered VTE Exclusion Pharmacological: N/A:VTE Prophy Ordered Plan - appreciate hospitalist consult for slurred speech - discussed MRI findings w/ Dr. Irizarry, who will come by to see the patient today - cont home meds - SCDs when in bed - SQH - incentive spirometry - ambulate - regular diet - further care per recs from hospitalist service and med onc SNEHA HIDALGO MD Dec 02, 2018 07:32
[2018-12-02] MEDS: DOCUSATE SODIUM 100 MG CAP PO SCH ×2 (08:39→20:33)
[2018-12-02] MEDS: HYDROXYUREA 500 MG CAP PO SCH (08:39)
[2018-12-02 10:00] VITALS: BP 118/66
[2018-12-02] MEDS ORDERED: PANT40TA3 PO (11:41)
[2018-12-02] MEDS ORDERED: DECA4TAB PO (11:41)
--- NOTE | 2018-12-02 11:43 | IPNPDOC ---
Subjective Date Seen The patient was seen on 12/02/18. Subjective Chief Complaint/HPI No new issues overnight. speech remains unchanged. Feels weak and tired all the time. Pain better controlled today though still very sore. Objective Physical Examination General Exam: Positive: Alert, Cooperative, Mild Distress Eye Exam: Positive: Conjunctiva & lids normal; Negative: Sclera icteric ENT Exam: Positive: Atraumatic, Mucous membr. moist/pink, Pharynx Normal Neck Exam: Positive: Supple; Negative: JVD, thyromegaly Chest Exam: Positive: Clear to auscultation, Normal air movement Heart Exam: Positive: Regular Rhythm Abdomen Exam: Positive: BS Hypoactive, Soft, Tenderness Extremity Exam: Positive: Normal pulses; Negative: Clubbing, Cyanosis, Edema Skin Exam: Positive: Nl turgor and temperature; Negative: Breakdown, Lesion Neuro Exam: Positive: Normal Gait, Strength at 5/5 X4 ext, Normal Tone, Sensation Intact, Other (low volume speech) Psych Exam: Positive: Anxiety Assessment /Plan Assessment This is a 68 year old female with PMH of Polycythemia vera from 2017, cavitary spiculated lesion in right lower lobe hypermetabolic in PET scan ( infective/ fungal /malignant) following with pulmonary, left adrenal hypermetabolic nodule, daily alcohol use ( 4 beers), smoker, anxiety, hyperlipidemia admitted to the hospital for elective left adrenalectomy. Had surgery on 11/30/18 and this am complained to the urologist that she has been having trouble speaking for the last 3 to 4 weeks and trouble finding words. So the hospitalist service was consulted. Brain metastasis. Pateint had complaints with speech with h/o adrenal mass and lung mass will get MRI of brain with contrast was done showed 2 ring enhancing lesions one on right pareintal lobe and one on left parietal lobe. started on dexamethasone To be discharged with po decadron 4 mg tid discussed with Dr Irizarry. Will discuss with radiation oncology . Polycythemia vera continue hydroxyuria S/P left radical adrenalectomy for adrenal mass possibly malignant Pulmonary cavitary lesion spiculated infective vs fungal vs malignant following with Dr Elizalde hyperlipidemia continue statin Protein calorie malnutrition BMI 18.6, temporal wasting due to underlying cancer and alcohol use significant amount. will monitor for alcohol withdrawal. Smoker counselled about quitting offered nicotine patch. pt refused at this time. Generalized deconditioning and some difficulty in walking will consult PT. Plan/VTE VTE Prophylaxis Ordered?: Yes VTE Exclusion Mechanical Proph: N/A:VTE Prophy Ordered VTE Exclusion Pharmacological: N/A:VTE Prophy Ordered VS, I&O, 24H, Fishbone Vital Signs/I&O Vital Signs Date Time Temp Pulse Resp B/P (MAP) Pulse Ox O2 Delivery O2 Flow Rate FiO2 12/02/18 10:45 18 12/02/18 10:00 98.4 80 118/66 (83) 95 12/01/18 10:17 3.0 I&O- Last 24 Hours up to 6 AM 12/02/18 06:00 Intake Total 1295 ml Output Total 300 ml Balance 995 ml Laboratory Data 24H LABS Laboratory Tests 2 12/02/18 05:53: Nucleated Red Blood Cells % (auto) 0.0, Anion Gap 8, Glomerular Filtration Rate > 60.0, Blood Urea Nitrogen 11, Creatinine 0.46L, Sodium Level 134L, Potassium Level 3.8, Chloride Level 100, Carbon Dioxide Level 26, Calcium Level 9.1# CBC/BMP Laboratory Tests 12/02/18 05:53 Red Blood Count 3.10 L, Mean Corpuscular Volume 110.0 H, Mean Corpuscular Hemoglobin 38.1 H, Mean Corpuscular Hemoglobin Concent 34.6, Red Cell Distribution Width 13.2, Calcium Level 9.1 # ANDREY PACHECO MD Dec 02, 2018 11:43
[2018-12-02 14:00] VITALS: BP 118/61
[2018-12-02 22:00] VITALS: BP 108/64
[2018-12-03] MEDS: dexameTHASONE 4 MG/ML 1ML VIAL (J1100) IV SCH ×2 (00:13→05:45)
[2018-12-03] MEDS: HEPARIN SOD (PORCINE) 5000 UNITS/ML VIAL SC SCH (05:45)
[2018-12-03] MEDS: PANTOPRAZOLE 40MG INJ (PROTONIX) (C9113) IV SCH (05:45)
[2018-12-03] MEDS: PERCOCET 5MG/325MG TAB PO PRN (05:46)
[2018-12-03 06:41] LABS: HEMATOCRIT 31.5 % (36.0-47.0); HEMOGLOBIN 10.7 g/dl (12.0-15.5); MEAN CORPUSCULAR HEMOGLOBIN 37.2 pg (27.0-33.0); MEAN CORPUSCULAR VOLUME 109.4 fl (80.0-96.0); PLATELET COUNT, AUTOMATED 594 10^3/uL (150-450); RED BLOOD COUNT 2.88 10^6/uL (4.00-5.40); WHITE BLOOD COUNT 13.4 10^3/uL (4.0-10.0)
[2018-12-03 07:05] LABS: BLOOD UREA NITROGEN 19 MG/DL (7-18); CALCIUM LEVEL 8.6 MG/DL (8.8-10.2); CARBON DIOXIDE LEVEL 28 MEQ/L (21-32); CHLORIDE LEVEL 99 MEQ/L (98-107); CREATININE FOR GFR 0.48 MG/DL (0.55-1.30); GLOMERULAR FILTRATION RATE > 60.0 (>45); GLUCOSE, FASTING 118 MG/DL (70-100); POTASSIUM SERUM 4.2 MEQ/L (3.5-5.1); SODIUM LEVEL 135 MEQ/L (136-145)
--- NOTE | 2018-12-03 08:04 | IPNPDOC ---
Subjective Review oF Systems Chief Complaint The patient is a 68-year-old female admitted with a reason for visit of Left Adrenal Mass. Events since Last Encounter No acute events o/n. Patient notes pain is better controlled. No n/v. Ambulating better. No f/c/ns. Objective Physical Examination General Exam: Cooperative, No Acute Distress Heart Exam: Positive: Regular Rhythm ABDOMEN EXAM: Soft, Other (incisions clean/dry/intact) Skin Exam: Nl turgor and temperature Neuro Exam: No: Normal Speech Psych Exam: Other; No: Mental status NL Vital Signs/I&O Vital Signs Date Time Temp Pulse Resp B/P (MAP) Pulse Ox O2 Delivery O2 Flow Rate FiO2 12/03/18 06:16 18 12/02/18 22:00 97.6 67 108/64 (79) 97 12/01/18 10:17 3.0 I&O- Last 24 Hours up to 6 AM 12/03/18 06:00 Intake Total 890 ml Output Total 0 ml Balance 890 ml Laboratory Data Labs 24H Laboratory Tests 2 12/03/18 05:54: Nucleated Red Blood Cells % (auto) 0.0 12/03/18 05:55: Anion Gap 8, Glomerular Filtration Rate > 60.0, Blood Urea Nitrogen 19#H, Creatinine 0.48L, Sodium Level 135L, Potassium Level 4.2, Chloride Level 99, Carbon Dioxide Level 28, Calcium Level 8.6L CBC/BMP Laboratory Tests 12/03/18 05:54 Red Blood Count 2.88 L, Mean Corpuscular Volume 109.4 H, Mean Corpuscular Hemoglobin 37.2 H, Mean Corpuscular Hemoglobin Concent 34.0, Red Cell Distribution Width 13.3 12/03/18 05:55 Calcium Level 8.6 L Assessment/Plan Date Seen The patient was seen on 12/03/18. Patient Summary This is a 68 y/o F POD3 s/p left robotic radical adrenalectomy, now found to have brain mets on MRI done for slurred speech. Her speech has improved w/ decadron. Pathology on the adrenal is SCC, likely from lung primary. Her pain is better today and she has been ambulating. Labs w/i normal limits. Plan/VTE VTE Prophylaxis Ordered?: Yes VTE Exclusion Mechanical Proph: N/A:VTE Prophy Ordered VTE Exclusion Pharmacological: N/A:VTE Prophy Ordered Plan - percocet prn pain - appreciate hospitalist consult - continue decadron - cont home meds - strict I/Os - SCDs when in bed - SQH - incentive spirometry - regular diet - likely discharge home today if cleared by PT SNEHA HIDALGO MD Dec 03, 2018 08:04
[2018-12-03] MEDS ORDERED: OXYC1TAB23 PO (08:48)
[2018-12-03] MEDS ORDERED: COLA100C5 PO (08:48)
[2018-12-03] MEDS ORDERED: ACET1TAB55 PO (08:48)
[2018-12-03] MEDS: HYDROXYUREA 500 MG CAP PO SCH (09:16)
[2018-12-03] MEDS: DOCUSATE SODIUM 100 MG CAP PO SCH (09:16)
--- NOTE | 2018-12-03 21:41 | DSES ---
DATE OF ADMISSION: 11/30/2018 DATE OF DISCHARGE: 12/03/2018 ADMISSION DIAGNOSIS: Left adrenal neoplasm. DISCHARGE DIAGNOSES: 1. 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 2. Brain tumors. ADMITTING PHYSICIAN: Dr. Devante Pham DISCHARGE PHYSICIAN: Dr. Devante Pham PROCEDURES PERFORMED: Left robotic-assisted laparoscopic radical adrenalectomy on 11/30/2018. HISTORY OF PRESENT ILLNESS: This is a 68-year-old female who had a growing 5 cm left adrenal neoplasm, which at the time had not been determined to be benign or malignant. Given the size greater than 4 cm and based on that criteria alone, it warranted removal. Also, there was a possibility that this might have been a metastatic lesion from the lung, and it appeared to be if that was the case, it was a solitary metastasis, and based on that possibility, it would still warrant removal. She was therefore brought to the hospital for the above-listed surgery and admitted postoperatively. HOSPITALIZATION COURSE: The patient was admitted to the hospital after undergoing the above-listed procedure. On postoperative day #1 she started having slurred speech and difficulty with word finding. After discussing this with her , he noted that she had been having this on and off for the past few weeks, but they had not alerted any of her providers. Due to these difficulties with word finding and slurred speech, the hospitalist group was consulted, and MRI of the brain was obtained. It was notable for a 4 cm ring-enhancing lesion in the left parietal lobe as well as a 7 mm ring-enhancing lesion in the right temporal lobe, both raising concern for metastases. The patient was then started on Decadron, and over the next few days her slurred speech did start to improve. Her pain became better controlled. She started ambulating then as well. Her labs throughout the stay were within normal limits. By postoperative day #3, she was tolerating a regular diet and was ambulating well enough, and at this point speaking well enough to be deemed ready for discharge. Ultimately, pathology on the adrenal mass came back positive for squamous cell carcinoma due to likely lung cancer primary. The patient was deemed ready for discharge home on postoperative day #3 and was discharged home with the plan to continue Decadron. She is also scheduled for a followup visit with me next week as well as with Dr. Irizarry of medical oncology to discuss further workup and treatment of her metastatic lung cancer.
== END 2018-12-03 10:14 | disposition home health service (06) | DRG 614 ==
LOC: M OR 07:21 → M MS5PR 15:15
PROVIDERS: ADMIT Urology; ATTEND Urology
PROC: 8E0W4CZ Robotic Assisted Procedure of Trunk Region, Percutaneous Endoscopic Approach (ICD-10-PCS; 2018-11-30)
PROC: 0GT24ZZ Resection of Left Adrenal Gland, Percutaneous Endoscopic Approach (ICD-10-PCS; principal; 2018-11-30 09:00)
DX: C79.72 Secondary malignant neoplasm of left adrenal gland (principal); E46 Unspecified protein-calorie malnutrition; Z68.1 Body mass index [BMI] 19.9 or less, adult; C79.31 Secondary malignant neoplasm of brain; C34.31 Malignant neoplasm of lower lobe, right bronchus or lung; D45 Polycythemia vera; F17.200 Nicotine dependence, unspecified, uncomplicated; F41.9 Anxiety disorder, unspecified; E78.5 Hyperlipidemia, unspecified; Z79.82 Long term (current) use of aspirin; Z79.899 Other long term (current) drug therapy; Z88.2 Allergy status to sulfonamides; Z88.8 Allergy status to other drugs, medicaments and biological substances

== ENCOUNTER → 2018-12-10 | Outpatient (CLI) | payer MEDICARE ==
[~2018-12-10] MED LIST changes: +ACET1TAB55 PO; +COLA100C5 PO; +DECA4TAB PO; -LR 1,000 ML IV ONE; +OXYC1TAB23 PO; +PANT40TA3 PO
--- NOTE | 2018-12-11 09:03 | RADONC ---
RADIATION ONCOLOGY CONSULTATION DATE: 12/10/2018 CHART NUMBER: [id number] DIAGNOSIS: Lung cancer. STAGE: Stage IV, metastatic. ECOG PERFORMANCE STATUS: 1. CONSULTATION NOTE: Ms. 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 HISTORY OF PRESENT ILLNESS: The patient has been followed for a solitary right lower lobe cavitary lesion in the lung. This has been followed since April 25, [address] scan done on 10/29/2017 and 01/01/2018 confirmed a stable cavitary lesion. On 03/15/[address] scan was done only this time there had been a change in the cavitary lesion in the right lower lobe which had increased in size. On that CT scan, the lesion measured 2.8 cm x 3.5 cm x 3.1 cm in the air density component and measured 4.1 cm x 4.7 cm x 4 cm, including the soft tissue periphery. This was an overall increase when compared to the previous CT scan 2 months earlier, in which the central soft tissue density component measured 2.5 cm x 1.2 x 1 cm. On 06/03/2018, there was gradually enlarged thickened wall of the spiculated cavity noticed, compatible with a primary lung malignancy. A biopsy of a left adrenal nodule had been done on 12/23/2017 and showed no evidence of malignancy. On 11/30/2018, the left adrenal gland resection was undertaken and was found to consist of metastatic moderate to poorly differentiated squamous cell carcinoma with extensive tumor necrosis involving the adrenal gland. On 12/01/2018, MRI of the brain was done, which was found to show a 3.8 cm ring-enhancing metastasis to the left parietal lobe, as well as a second 7 mm ring enhancing metastasis to the right temporal lobe. The patient is now presenting for consideration of external beam radiation therapy for her brain metastasis. She has been placed on Decadron. PAST MEDICAL HISTORY: The patient's past medical history is positive for polycythemia vera, hypertension, pneumonia and a tonsillectomy as a teenager. Again, as noted above, she had a left adrenalectomy. ALLERGIES: The patient is allergic to BACTRIM. SOCIAL HISTORY: The patient continues to smoke cigarettes and drink alcohol. FAMILY HISTORY: The patient's family history is positive for her father with lymphoma and sister with lung cancer. REVIEW OF SYSTEMS: The patient's review of systems is positive for some anxiety, depression, as well as anorexia and weight loss. She reports headaches, weakness in arms and legs, decreased energy and generalized aches and pains. Overall, she does not feel well. She denies nausea, vomiting, fevers, chills, night sweats, diplopia, chest pain, shortness of breath, urinary or bowel difficulties. PHYSICAL EXAMINATION: The patient is a chronically ill-appearing, white female in no acute distress. HEENT: Exam is normocephalic, atraumatic. Extraocular movements are intact. There is no palpable cervical, supraclavicular, infraclavicular or axillary lymphadenopathy present. Lungs are clear to auscultation and percussion. Heart has regular rate and rhythm. Her abdomen is benign with no hepatosplenomegaly, masses or tenderness. Skeletal examination reveals no tenderness to pressure or percussion of the bony skeleton. Extremities: Reveal no clubbing, cyanosis or edema. ASSESSMENT: I had a lengthy discussion with this patient and her at this time. We discussed the possibilities of and standard external beam radiation therapy for her brain metastasis. We discussed logistics of treatment planning, simulation and subsequent fractionated daily radiation treatments. The patient may also be a candidate for SRS in [facility]. At this time, however, the patient overall looks chronically ill and is quite weak. She said she feels like she needed to go home immediately. Considering her overall condition and extent of metastatic disease, I think it reasonable to offer her whole brain radiation therapy locally than refer her all the way to [facility] at this time. The patient did not feel well enough to wait until we could schedule her simulation. In light of that, I am planning on simulating her early next week, perhaps even Thursday if possible. We will obtain insurance authorization if necessary in the meantime. Once again, in summary, I am scheduling the patient for simulation as soon as possible, perhaps on Thursday. She was unable to stay today as she felt quite weak and was anxious to get home and lay down. Overall, she looks quite weak and I think it reasonable to offer this lady whole brain radiation. We can then reevaluate pending her overall results. cc: Breanne Irizarry MD
== END ==
LOC: M ONCR 09:01
PROVIDERS: ATTEND Radiology Radiation Oncology
DX: C71.9 Malignant neoplasm of brain, unspecified (principal)

== ENCOUNTER → 2018-12-17 | Outpatient (CLI) | payer MEDICARE ==
[~2018-12-17] MED LIST changes: +DEME150T2 PO; +MEGE400S10 PO
--- NOTE | 2018-12-17 10:26 | REP ---
Acute abdominal series series including PA chest and supine upright abdomen or bowel obstruction: Comparisons are chest CT studies dated 01/01/2018 and 09/22/2018. PA chest: There is a large cavitary lesion in the lower lobe of the right lung measuring 6.3 cm in diameter on the plain film study today. This measured 3.3 cm on the 01/01/2018 CT, and 5.6 cm on the 09/22/2018 CT. There is a parenchymal scar inferolaterally in the right lung, unchanged from the prior CTs. Left lung is clear. Cardiac size is normal. There is no free subdiaphragmatic air. Impression: Cavitary lesion in the lower lobe of the right lung as described, otherwise negative PA chest. Abdomen, supine upright views: There is no bowel distension or obstruction. There is abundant fecal residue throughout the colon compatible with constipation. There are no calcifications or foreign bodies. There is lumbar scoliosis convex left. The skeletal structures and soft tissues are otherwise unremarkable. Impression: There is no bowel obstruction. There is abundant fecal residue throughout the colon compatible with constipation. Electronically Signed by Blaine Cramer MD 12/17/2018 10:18 A
== END ==
LOC: M RAD 08:25
PROVIDERS: ATTEND Internal Medicine Medical Oncology
DX: K59.00 Constipation, unspecified (principal)

== ENCOUNTER 2018-12-24 07:47 | Outpatient (RCR) | payer MEDICARE ==
--- NOTE | 2018-12-15 09:59 | RADONC ---
RADIATION ONCOLOGY SIMULATION NOTE DATE: CHART NUMBER: Ms. Neal was taken to the CT scan for CT simulation of her whole brain field. CT was accomplished without difficulty or discomfort. Radiation treatment planning is underway and radiation treatments will begin subsequently. An immobilization device including a mask was created without difficulty or discomfort. It will be used throughout the course of treatment. I was physically present throughout the course of CT simulation. We initially considered possibly sending her for stereotactic radiosurgery but in light of the patient's condition we have decided to deliver whole brain radiation at this point. We will continue to follow her however and should surgery be indicated in the future we can refer her down if she is up to it and willing to go at that time.
--- NOTE | 2018-12-21 09:23 | RADONC ---
RADIATION ONCOLOGY PROGRESS NOTE DATE: 12/20/2018 CHART NUMBER: [id number] DIAGNOSIS: Lung cancer with metastasis to the brain. STAGE: IV. PROGRESS NOTE: The patient has a diagnosis of lung cancer metastatic to the brain and is currently receiving local regional radiotherapy to the whole brain. She has achieved a dose thus far of 900 cGy of an anticipated 3000 cGy to the brain and treatments are going reasonably well. REVIEW OF SYSTEMS: She complains of frequent insomnia and decrease in her appetite and hunger. She denies any nausea, vomiting, diarrhea, dysuria, hematuria, or blood per rectum. Her energy level is diminished but she is still able to maintain some of her daytime activities without any significant alteration of her lifestyle. Skin irritation is denied. She denies specifically, odynophagia, dysphagia, coughing, sputum production, or hemoptysis. The remainder of the review of systems is unchanged. IMPRESSION: Tolerating therapy reasonably well with no significant neurologic progression or deterioration. PLAN: Treatments to continue.
[2019-01-07] MEDS ORDERED: ONDA8TAB7 PO (12:08)
== END 2018-12-26 ==
LOC: M ONCR 07:47
PROVIDERS: ATTEND Radiology Radiation Oncology
DX: C79.31 Secondary malignant neoplasm of brain (principal); C34.31 Malignant neoplasm of lower lobe, right bronchus or lung

== ENCOUNTER 2018-12-28 07:19 | Outpatient (RCR) | payer MEDICARE ==
[2018-05-31 10:36] LABS: HEMATOCRIT 36.9 % (37.0-51.0); HEMOGLOBIN 12.5 g/dl (12.0-18.0); LYMPH % 35.2 % (10.0-58.5); MEAN CORPUSCULAR HEMOGLOBIN 41.9 pg (26.0-32.0); MEAN CORPUSCULAR HGB CONC 33.9 g/dl (31.0-36.0); MEAN CORPUSCULAR VOLUME > 115.0 fl (80.0-97.0); NEUTROPHILS # 3.3 10^3/uL (2.0-7.8); NEUTROPHILS % 56.6 % (37.0-92.0); PLATELET COUNT, AUTOMATED 469 10^3/uL (140-440); RED BLOOD COUNT 2.98 10^6/uL (4.2-6.3); WHITE BLOOD COUNT 5.8 10^3/uL (4.1-10.9)
[2018-05-31 10:43] VITALS: BP 147/77
--- NOTE | 2018-06-01 13:41 | MEDONC ---
MEDICAL ONCOLOGY FOLLOWUP VISIT DATE OF SERVICE: 05/31/2018 Ivelisse is seen today by LOVE Erazo with Dr. Breanne Irizarry the supervising physician. DIAGNOSIS: JAK2 positive myeloproliferative neoplasm presenting with thrombocytosis, erythrocytosis and leukocytosis. Diagnosed March of 2017. Hydroxyurea begun initially March of 2013. CURRENT THERAPY: Hydroxyurea 500 mg by mouth every day Thursday through Thursday, none on Thursday or Thursday. Aspirin 81 mg by mouth every day. INTERVAL HISTORY: Ivelisse presents today for a scheduled followup visit. She claims to be compliant with taking the hydroxyurea and a baby aspirin. At present she claims to feel well and offers no specific complaints. ECOG performance status is 0. Currently, the patient specifically denies complaints of headache, visual disturbance, dyspnea, persistent cough, diminished appetite unintended weight loss, nausea, vomiting, diarrhea, constipation, skeletal pain or extremity edema. LABORATORY DATA: WBC 5.8, ANC 3.3, RBC 2.98, H H 12.5, 36.9, platelets stable at 469. PHYSICAL EXAMINATION: Weight is 48.6 kg, temperature 97, pulse 83, respirations 16, BP 147/77, O2 sat 100% at rest on room air. General: Exam reveals a petite youthful middle-aged female who is clinically stable and in no acute distress. HEENT: No scleral icterus. Oral pharynx, oral mucous membranes, and conjunctivae normal. No thyroid enlargement or nodule. No jugular venous distention, neck supple, carotid upstrokes 1+, no bruits. Fundi normal bilaterally. RESPIRATORY: Lungs clear bilaterally to auscultation and percussion. No rales, rhonchi, or wheezing. CARDIOVASCULAR: PMI 5th left intercostal space, midline. S1, S2 normal. No S3, S4 or murmurs, regular rhythm. Femoral dorsalis pedis pulses 2+ bilaterally. LYMPHATICS: No palpable lymphadenopathy. ABDOMEN: Soft, nontender, bowel sounds normal, no tenderness, guarding or rebound, no palpable masses or hepatosplenomegaly. MUSCULOSKELETAL: No focal skeletal tenderness to percussion, no joint swelling, warmth, or erythema. SKIN: No rash, ecchymosis, or petechiae. Normal turgor. EXTREMITIES: No edema, clubbing, or cyanosis. No thigh or calf tenderness. Normal range of motion. IMPRESSION: JAK2 positive myeloproliferative neoplasm presenting with thrombocytosis, erythrocytosis and leukocytosis. Doing well on hydroxyurea 500 mg one by mouth every day Thursday through Thursday, none on Thursday and an 81 mg aspirin by mouth every day. Today's CBC is within acceptable parameters. No indication for dose change at this time. PLAN: 1. Continue hydroxyurea 500 mg by mouth every day Thursday through Thursday none on Thursday or Thursday. 2. Aspirin 81 mg by mouth every day. 3. Return in 2 months for brief office visit and repeat CBC sooner if any new symptoms, questions or problems. Reviewed by Romi Kim NP 06/01/2018 04:18 P Electronically Signed by Breanne Irizarry MD 06/01/2018 07:03 P DD: Romi Kim NP 05/31/2018 11:19 A DT: thuy 06/01/2018 01:33 P CC: MD Neno Latif DO [facility]
[2018-08-02 08:10] VITALS: BP 125/73
[2018-08-02 08:23] LABS: HEMATOCRIT 39.6 % (36.0-47.0); HEMOGLOBIN 13.3 g/dl (12.0-15.5); LYMPH % 26.2 % (24.0-44.0); MEAN CORPUSCULAR HEMOGLOBIN 41.4 pg (27.0-33.0); MEAN CORPUSCULAR HGB CONC 33.6 g/dl (32.0-36.5); MEAN CORPUSCULAR VOLUME > 115.0 fl (80.0-96.0); NEUTROPHILS # 4.1 10^3/uL (1.8-7.7); NEUTROPHILS % 66.1 % (36.0-66.0); PLATELET COUNT, AUTOMATED 459 10^3/uL (150-450); RED BLOOD COUNT 3.21 10^6/uL (4.00-5.40); WHITE BLOOD COUNT 6.2 10^3/uL (4.0-10.0)
--- NOTE | 2018-08-03 09:22 | MEDONC ---
MEDICAL ONCOLOGY/HEMATOLOGY FOLLOWUP DATE OF SERVICE: 08/02/2018 Ivelisse is seen today by Romi Kim NP with Dr. Breanne Irizarry the supervising physician. DIAGNOSIS: JAK2 positive myeloproliferative neoplasm presenting with thrombocytosis, erythrocytosis and leukocytosis. Diagnosed March 2017. Hydroxyurea begun initially March 2017. CURRENT THERAPY: Hydroxyurea 500 mg p.o. daily Thursday through Thursday, none on Thursday or Thursday. Aspirin 81 mg p.o. daily. (Ivelisse has been on her current dose of hydroxyurea since August 2016). INTERVAL HISTORY: The patient presents today for a scheduled 2-month followup visit. She claims to be compliant with taking the hydroxyurea and baby aspirin. She currently offers no complaints, claims to feel well, ECOG performance status is zero. At present, Ivelisse specifically denies complaints of headache, visual disturbance, dyspnea, persistent cough, diminished appetite, unintended weight loss, nausea, vomiting, diarrhea, constipation, skeletal pain or extremity edema. She denies any unilateral extremity swelling, ease of bruising or spontaneous bleeding. LABORATORY DATA: CBC today: WBC 6.2, ANC 4.1, RBC 3.21, H H 13.3, 39.6, platelets 459. PHYSICAL EXAMINATION: Weight is 49.1 kg, BSA 1.45, temperature 97.4, pulse 92, respirations 20, BP 125/73, O2 sat 94% at rest on room air. General: Exam reveals a petite, youthful, middle-aged female who is comfortable and in no acute distress. Cardiac is S1, S2 without murmur. Lungs: Sounds are clear. Abdomen: Soft, symmetrical with normoactive bowel sounds without guarding, hepatosplenomegaly, mass or bruit. Extremities: Without clubbing, cyanosis or edema. IMPRESSION: Ivelisse is a very pleasant 67-year-old white female with a personal history of JAK2 positive myeloproliferative neoplasm presenting with thrombocytosis, erythrocytosis and leukocytosis. Doing well on hydroxyurea 500 mg one p.o. every day Thursday through Thursday, none on Thursday or Thursday, and an 81 mg aspirin p.o. daily. Ivelisse has been on her current dose of hydroxyurea since August 2017 with stable CBC. No indication for dose change at this time. PLAN: 1. Continue hydroxyurea as above. 2. Aspirin 81 mg p.o. daily. 3. Return for an office visit and repeat CBC and physical exam in 3 months, certainly sooner if any new symptoms, questions or problems. Reviewed by Romi Kim NP 08/03/2018 12:36 P Electronically Signed by Breanne Irizarry MD 08/03/2018 04:29 P DD: Romi Kim NP 08/02/2018 08:38 A DT: reji 08/03/2018 09:02 A CC: MD Neno Latif, DO [facility]
[2018-11-01 07:57] LABS: HEMOGLOBIN 13.8 g/dl (12.0-15.5); LYMPH % 18.1 % (24.0-44.0); MEAN CORPUSCULAR HEMOGLOBIN 39.9 pg (27.0-33.0); MEAN CORPUSCULAR HGB CONC 33.7 g/dl (32.0-36.5); MEAN CORPUSCULAR VOLUME > 115.0 fl (80.0-96.0); NEUTROPHILS % 76.6 % (36.0-66.0); PLATELET COUNT, AUTOMATED 686 10^3/uL (150-450); RED BLOOD COUNT 3.46 10^6/uL (4.00-5.40); WHITE BLOOD COUNT 7.8 10^3/uL (4.0-10.0)
[2018-11-01 07:59] VITALS: BP 116/75
[2018-11-01 09:40] LABS: INR 0.86; PROTHROMBIN TIME 11.8 SECONDS (12.1-14.4)
[2018-11-01 09:41] LABS: PARTIAL THROMBOPLASTIN TIME 30.9 SECONDS (25.4-37.6)
--- NOTE | 2018-11-01 14:50 | MEDONC ---
MEDICAL ONCOLOGY FOLLOWUP DATE OF SERVICE: 11/01/2018 DIAGNOSES: 1, JAK2 positive myeloproliferative neoplasm presenting with thrombocytosis, erythrocytosis, and leukocytosis in March 2017. Currently, on hydroxyurea 500 mg daily Thursday through Thursday, skipping Thursday and Thursday. 2. Right upper lobe pulmonary mass hypermetabolic 3. Left adrenal mass hypermetabolic. Recent CT-guided biopsy attempt yielding nonmalignant cells. 4. Chronic long-term current smoker. CURRENT THERAPY: hydroxyurea 500 mg daily Thursday through Thursday, none on Thursday, Thursday. aspirin 81 mg daily. INTERVAL HISTORY: Ivelisse had an adrenal biopsy under Dr. Pham's direction December 23 of last year. This was, she reports, quite traumatic. She seems to have had some sort of vasovagal event. She cannot really describe it, but as a result has been reluctant to undergo a CT-guided biopsy of the chest mass which is seen to be enlarging on August CT. The adrenal mass is also enlarging on September CT. She is scheduled to see Dr. Pham next week, and there is discussion of an open surgical biopsy. Meanwhile, I spoke with Dr. Elizalde today given the likelihood in this long-term smoker of a primary lung malignancy with adrenal metastasis of possibly persuading Ivelisse to a CT-guided biopsy at this point. Dr. Elizalde reports the appearance on CT is a little unusual, possibly a fungal mass, but also agreed the CT-guided biopsy would be optimal. In addition, Ivelisse complains of losing her appetite gradually over many months, and she has had an approximate 6 kg weight loss in the last year, overall concerning for underlying malignancy. Platelets today are elevated, but today is the day after her 2 days off. Normally in fairly good control with platelets in the 400-500 range. Of note, she has been on the current dose of hydroxyurea since 2017; but in 2018, 2019, the platelet count has drifted up, sometimes in the 500s. IMPRESSION: JAK2 positive myeloproliferative neoplasm with upward drift in platelet count on Hydrea 500 mg daily Thursday through Thursday, skipping Thursday and Thursday. Hypermetabolic right upper lobe and left adrenal masses, highly suspicious for malignancy. New dysgeusia and weight loss over approximately 4-12 months. PLAN: 1. At length, Ivelisse acknowledged wanting to know what the lung mass is and being willing to undergo CT-guided biopsy with an anxiolytic beforehand. I prescribed 0.5 mg Ativan. She can take one or up to two of these prior to the procedure. 2. Brain MRI with gadolinium. Rule out intracranial metastasis given the new nonspecific appetite loss and weight loss. 3. Return to clinic 1 week after biopsy. 4. For the present, will hold increasing hydroxyurea dose. Rechecked on a non Thursday, midwk being optimal for optimal effective of drug. TIME STATEMENT: 30 minutes [id number] with the patient, more than 50% involving counseling regarding a biopsy of the lung, answering the patient's many questions, and responding to her concerns about risks of biopsy, reviewing the possibility of need for chest tube. Electronically Signed by Breanne Irizarry MD 11/01/2018 05:05 P DD: Breanne Irizarry MD 11/01/2018 09:25 A DT: sri 11/01/2018 09:34 A CC: MD Neno Mccann DO [facility]
[2018-12-10 08:11] VITALS: BP 134/72
--- NOTE | 2018-12-10 09:42 | MEDONC ---
MEDICAL ONCOLOGY FOLLOW-UP DATE OF SERVICE: 12/10/2018 DIAGNOSIS: 1. JAK2 positive myeloproliferative neoplasm on hydroxyurea 500 mg Thursday through Thursday, skipping Thursday and Thursday. 2. Newly diagnosed metastatic squamous cell carcinoma presumptively of lung, involving dominant right upper lobe mass, left adrenal mets status post adrenalectomy, and symptomatic intracranial metastases including dominant 3.8 cm ring enhancing left parietal lobe metastasis and 7 mm ring enhancing right temporal lobe metastases on 12/01/2018 brain MRI in the setting of slurred speech post operatively for the adrenalectomy. 3. Chronic long-term current smoker. CURRENT THERAPY: Hydroxyurea 500 mg Thursday - Thursday, held Thursday, Thursday. Aspirin 81 mg daily. Dexamethasone 4 mg t.i.d. begun following discovery of brain metastasis. INTERVAL HISTORY: This is Ivelisse's first followup here after her surgery with Dr. Pham. The surgery went fine. She is having a little bit of discomfort and path unfortunately showed metastatic moderately to poorly differentiated squamous cell carcinoma with extensive tumor necrosis involving adrenal with only a residual rim of normal adrenal parenchymal. Strongly p63 positive, CK5 positive, negative TTF-1 consistent with squamous cell carcinoma. While in the hospital Ivelisse developed slurred speech, brain MRI 12/01/2018 showed a 3.8 cm ring enhancing left parietal lobe mass and a 7 mm right temporal mass. She was started on dexamethasone. Ivelisse complains of appetite loss. Her slurred speech resolved and her partner notes she is much better since being on the dexamethasone though she complains of insomnia, yet she is napping during the day. She complains of some low back pain and thinks she is developing skin ulcers. She has some scratched areas on the back, no ulcerative lesions, a dried eschar. I explained to Ivelisse that the adrenal findings are likely also connected to the lung and brain findings and all of this is most consistent with metastatic squamous cell carcinoma of lung. I explained it is not curative, but treatment is absolutely available. The first order with begin with radiation to the brain followed by chemoimmunotherapy. This will give her time to heal from her surgery. Ivelisse asked about appetite improving. She is currently doing her best to take in Boost. I had discussed Megace, explained it does carry the risk of thromboembolic events. She is on 81 mg aspirin daily. Her thrombocytosis has been reasonably under control though in the last week, likely postoperative thrombocytosis emerged. Ivelisse declined Megace, I asked her to reconsider in the next few days. 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 Improved neurologic symptoms on dexamethasone, but persistent anorexia. New low back pain concerning for metastases. Mild thrombocytosis on hydroxyurea, continues current dosing. This is likely reactive and postoperative. We won't change current dose now which is 500 mg daily Thursday through Thursday. PLAN: 1. [facility] radiation oncology referral today. Case discussed with Dr. Hinojosa. He will see Ivelisse today. 2. Continue dexamethasone 4 mg t.i.d. 3. The patient was offered but declined Megace, but this can be reconsidered if her appetite continues. 4. I encouraged up to 3-5 Boosts per day. 5. Bone scan. 6. One week interval return with CBC, CMP. TIME STATEMENT: 40 minutes [id number] with the patient, more than 50% involved in counseling, reviewing findings, answering questions, coordinating radiation oncology immediate referral, discussing the issues of insomnia on dexamethasone, appetite loss, skeletal pain, and forming the plan above with the patient. Electronically Signed by Breanne Irizarry MD 12/13/2018 06:45 P DD: Breanne Irizarry MD 12/10/2018 08:52 A DT: swati 12/10/2018 09:07 A CC: MD Blaine Mccann MD Paula M. Gregg, MD Rory Sears, DO [facility]
[2018-12-16 07:57] LABS: HEMATOCRIT 42.7 % (36.0-47.0); HEMOGLOBIN 14.3 g/dl (12.0-15.5); LYMPH % 7.6 % (24.0-44.0); MEAN CORPUSCULAR HEMOGLOBIN 39.1 pg (27.0-33.0); MEAN CORPUSCULAR HGB CONC 33.5 g/dl (32.0-36.5); MEAN CORPUSCULAR VOLUME > 115.0 fl (80.0-96.0); NEUTROPHILS # 13.2 10^3/uL (1.8-7.7); NEUTROPHILS % 89.8 % (36.0-66.0); PLATELET COUNT, AUTOMATED 898 10^3/uL (150-450); RED BLOOD COUNT 3.66 10^6/uL (4.00-5.40); WHITE BLOOD COUNT 14.7 10^3/uL (4.0-10.0)
[2018-12-16 08:06] VITALS: BP 112/70
[2018-12-16 08:45] LABS: ALBUMIN 4.1 GM/DL (3.5-5.2); BLOOD UREA NITROGEN 29 MG/DL (6-20); CARBON DIOXIDE LEVEL 27 MEQ/L (23-31); CHLORIDE LEVEL 92 MMOL/L (98-107); CREATININE FOR GFR 0.73 MG/DL (0.60-1.10); GLOMERULAR FILTRATION RATE > 60.0 (>45); GLUCOSE, FASTING 112 MG/DL (70-105); SODIUM LEVEL 129 MMOL/L (135-145); TOTAL PROTEIN 6.6 GM/DL (6.4-8.3)
--- NOTE | 2018-12-20 12:29 | MEDONC ---
MEDICAL ONCOLOGY FOLLOWUP DATE OF SERVICE: 12/16/2018 DIAGNOSES: 1. Metastatic squamous cell carcinoma with dominant right upper lobe mass, left adrenal metastasis status post adrenalectomy confirming squamous cell carcinoma of lung origin, multifocal intracranial metastases symptomatic diagnosed 11/2018 in the setting of slurred speech following adrenalectomy. 2. Chronic long-term current smoker trying to stop. 3. JAK2 positive myeloproliferative neoplasm on hydroxyurea 500 mg Thursday - Thursday, skipping Thursday and Thursday. CURRENT THERAPY: Hydroxyurea 500 mg. We are now increasing the dose to Thursday through Thursday 500 mg daily. Aspirin 81 mg daily, dexamethasone 4 mg t.i.d. since December 01. INTERVAL HISTORY: Ivelisse was here last week in her first followup after hospitalization for adrenalectomy finding of intracranial metastases. She has now seen Dr. Hinojosa and is scheduled to begin palliative radiation. She continues on dexamethasone t.i.d. She complains of generalized malaise, a very low appetite and no bowel movement for 16 days, though she has no abdominal discomfort. She thinks it is primarily just because she has not eaten anything. Bone scan was scheduled last week but not until early December. Last week she declined Megace but this week says she would like to try something for her appetite. She is trying to take up to 3 or 4 Boost per day. We reviewed her labs finding new thrombocytosis. I recommended she take the hydroxyurea every day and we will recheck next week. She has had no recurrent seizure activity since her hospitalization. Almost the entirety of today's visit was taken of answering Ivelisse her 's questions about her diagnosis, appetite, prognosis, palliative treatment options. I explained the prognosis of metastatic lung cancer without treatment, with treatment, and reviewed first line treatment following a palliative radiation to the brain as typically combination [employer] based doublet chemotherapy with or without immunotherapy. I reviewed risks, benefits, side effects of the treatment including but not limited to myelosuppression, peripheral neuropathy, alopecia, fatigue, autoimmune side effects such as pneumonitis, dermatitis, colitis. I also recommended we have Ivelisse complete brain radiation before embarking on specific planning for palliative systemic therapy. PHYSICAL EXAMINATION: Weight 41.3 kg, 5 kg loss from baseline. Temperature 95.7, blood pressure 112/70, heart rate 58, respiratory 16, O2 sat 98%. Patient is a petite, older woman, poor dentition, appearing exhausted. Respiratory: Clear lungs throughout the lung diaz. No audible rhonchi. No stridor. No wheezes. Cardiac: S1, S2, regular rate and rhythm. No murmur. No gallop. Abdomen is soft, nontender. No hepatosplenomegaly. No rebound tenderness. No masses. Extremities: No edema. Lymph nodes: No submandibular, cervical, supraclavicular or axillary adenopathy bilaterally. LABS: WBC 14.7, hemoglobin 14, hematocrit 43, platelets 898. Sodium 129, potassium 3.9, chloride 92, BUN 29, GFR greater than 60, calcium 9.2, albumin 4.1. CEA 3.3. IMPRESSION: Metastatic squamous cell carcinoma of lung involving right upper lobe dominant right lung mass, resected left adrenal metastasis, intracranial metastases on dexamethasone anticipating start of palliative whole-brain radiation. New hyponatremia, symptomatic. Anorexia likely secondary to hyponatremia. Thrombocytosis related to the patient's underlying myeloproliferative disorder on 500 mg hydroxyurea Thursday - Thursday. PLAN: 1. Increase hydroxyurea to Thursday through Thursday. 2. The sodium result came in after Ivelisse's had completed the visit. I will call her and suggest she begin fluid restriction and even consider demeclocycline considering how much malaise and distress she has over her low appetite. 3. Will also offer Megace 40 mg daily at her request today. 4. Return to clinic 1 week. Recheck [facility] for response to hydroxyurea and titrate as needed. 5. Currently will plan for Ivelisse to complete whole-brain RT before starting systemic treatment discussed today at some length. TIME STATEMENT: 40 minutes spent [id number] with the patient, more than 50% involved in counseling, answering the patient's many astute questions, reviewing the possible cause of anorexia and treatments, the sequence of treatment discussing hydroxyurea dose. Electronically Signed by Breanne Irizarry MD 12/20/2018 05:02 P DD: Breanne Irizarry MD 12/17/2018 02:34 P DT: shanta 12/20/2018 12:01 P CC: MD Camille Hernandez MD
[~2018-12-28] VITALS: Ht 154.9 cm; Wt 40.2 kg
[2018-12-28 08:08] LABS: HEMATOCRIT 40.9 % (36.0-47.0); HEMOGLOBIN 13.7 g/dl (12.0-15.5); LYMPH % 6.7 % (24.0-44.0); MEAN CORPUSCULAR HEMOGLOBIN 38.9 pg (27.0-33.0); MEAN CORPUSCULAR HGB CONC 33.5 g/dl (32.0-36.5); MEAN CORPUSCULAR VOLUME > 115.0 fl (80.0-96.0); NEUTROPHILS # 13.9 10^3/uL (1.8-7.7); NEUTROPHILS % 90.7 % (36.0-66.0); PLATELET COUNT, AUTOMATED 463 10^3/uL (150-450); RED BLOOD COUNT 3.52 10^6/uL (4.00-5.40); WHITE BLOOD COUNT 15.3 10^3/uL (4.0-10.0)
[2018-12-28 08:25] VITALS: BP 112/70
[2018-12-28] MEDS ORDERED: COLA100C5 PO (08:31)
--- NOTE | 2019-01-01 06:55 | MEDONC ---
MEDICAL ONCOLOGY TELEPHONE NOTE DATE OF SERVICE: 12/29/2018 Ivelisse Neal's abdomen and pelvis CT showed postsurgical changes in the left upper quadrant surrounding the left adrenal gland and superior to the tail of the pancreas in an approximate 3.5 cm space an area of free fluid, fatty liver infiltration, no bowel obstruction, significant fecal stasis consistent with constipation and possible ileus. I spoke with Dr. Pham who reviewed the films and felt the changes were postsurgical and not likely to be consistent with infection and certainly do not explain the patient's right lower quadrant tenderness. I then spoke with Ivelisse's and explained and encouraged use of anti-constipation medications including Colace, Senokot and magnesium citrate if needed. Meanwhile, will plan for Ivelisse to start treatment next week barring further complications. Electronically Signed by Breanne Irizarry MD 01/03/2019 05:05 P DD: Breanne Irizarry MD 12/29/2018 05:22 P DT: [email or web address] 01/01/2019 06:52 A CC:
[2019-01-07] MEDS ORDERED: ONDA8TAB7 PO (12:08)
== END 2018-12-28 11:30 | disposition home or self-care (01) ==
LOC: M ONCM 07:19
PROVIDERS: ATTEND Internal Medicine Medical Oncology
DX: C34.90 Malignant neoplasm of unspecified part of unspecified bronchus or lung (principal); C79.72 Secondary malignant neoplasm of left adrenal gland; C79.31 Secondary malignant neoplasm of brain; D47.1 Chronic myeloproliferative disease; D47.3 Essential (hemorrhagic) thrombocythemia; D75.1 Secondary polycythemia; R10.813 Right lower quadrant abdominal tenderness; D72.829 Elevated white blood cell count, unspecified
CPT/HCPCS: 36415; 77307; 77334; 77387; 77412; 80053; 82378; 85027; 85610; 85730; G0463

== ENCOUNTER 2018-12-29 07:47 | Outpatient (RCR) | payer MEDICARE ==
--- NOTE | 2018-12-27 09:07 | RADONC ---
RADIATION ONCOLOGY PROGRESS NOTE DATE: 12/27/2018. CHART NUMBER: [id number] Mrs. Neal with the diagnosis of a malignant neoplasm involving the right bronchus, lower lobe, is currently receiving local regional radiotherapy to the whole brain. She has achieved a dose to date of 2400 cGy of an anticipated 3000 cGy and treatments are going relatively well. REVIEW OF SYSTEMS: She denies any nausea, vomiting, headaches or focal neurologic dysfunction. Her energy level is adequate and she is able to maintain most day-to-day activities without any alteration of her lifestyle. The remainder of the review of systems is essentially negative. EXAMINATION FINDINGS: The patient shows evidence of epilation. There is no palpable peripheral lymphadenopathy. Lungs are distant bilaterally and hyperresonant to percussion. Neurologic: Examination nonfocal, although the patient has a difficulty with ambulation secondary to weakness and poor coordination. IMPRESSION: Tolerating therapy. PLAN: Treatments to continue. MTDD
[~2018-12-29 07:47] MED LIST changes: -COLA50CA5 PO; -DEXA4TA PO; -FLEETOIL PR; -GASTROGRAFIN SOLUTION 30ML (Q9963) As Ordered ONE; -ISOVUE-370 76% 100ML VIAL (Q9967) As Ordered ONE; -KLOR10TA76 PO; -MEGE40SU5 PO; -META1POW PO; -ONDA8TAB7 PO; -PANT-23 PO; -PROC10TA4 PO; -SENO8.6T5 PO; -VALA500T5 PO; -[UNRECOGNIZED DRUG - CODE] PO
--- NOTE | 2018-12-29 14:04 | RADONC ---
RADIATION ONCOLOGY END OF TREATMENT SUMMARY DATE: 12/29/2018 CHART NUMBER: [id number] DIAGNOSIS: Lung cancer. STAGE: Stage IV, metastatic. ECOG PERFORMANCE STATUS: 1. PLAN OF RADIOTHERAPY: Local regional radiotherapy to the whole brain for palliation. DATE RADIOTHERAPY STARTED: 12/16/2018 DATE RADIOTHERAPY COMPLETED: 12/29/2018 DOSE: The patient received a total of 3000 cGy in 10 fractions over 13 elapsed days assessed at the 98% isodose line via 6 MV photon beam. 3-D conformal radiotherapy was employed for actual treatment delivery. Prior to treatment delivery, localization was accomplished upon our CT simulator and treatment portals defined by the use of multiple leaf collimators. STATUS OF TUMOR: There was no evidence of progressive disease locally nor further evidence of distant metastatic spread during her course of radiotherapy. DISPOSITION: Return to clinic in 1 month for post radiotherapy followup visit and skin check. She was advised to return to her referring physicians as per their directions and instructions. Thank you for allowing us the opportunity of participation in the management of this very topher patient. Most sincerely, Moises Fox MD cc: Breanne Irizarry MD
--- NOTE | 2018-12-30 11:18 | MEDONC ---
MEDICAL ONCOLOGY FOLLOWUP DATE OF SERVICE: 12/28/2018 DIAGNOSES: 1. Metastatic squamous cell carcinoma of lung with dominant right upper lobe mass, left adrenal metastasis status post adrenalectomy confirming squamous cell carcinoma lung origin, multifocal intracranial metastases. Diagnosis of metastatic disease early November 2018, now status post palliative WBRT. 2. Generalized malaise in the setting of hyponatremia, loss of appetite; no relief after starting demeclocycline and Megace late November 2018. 3. Chronic long-term smoker, currently trying to stop. 4. JAK2 positive myeloproliferative neoplasm on hydroxyurea 500 mg daily. CURRENT THERAPY: Hydroxyurea 500 mg daily Aspirin 81 mg daily. Dexamethasone 4 mg t.i.d., now on taper. Scheduled to begin palliative first-line lung cancer treatment with carboplatin/paclitaxel/pembrolizumab. Plan is for four cycles be followed by pembrolizumab maintenance. INTERVAL HISTORY: Ivelisse has completed brain radiation. She continues to feel generally poorly. She started the Megace and demeclocycline but denies any improvement overall. She complains of continued constipation, having had one bowel movement late last week. A plain flat and upright abdominal film was negative for evidence of obstruction and showed significant stool present. Ivelisse and her believe she is not having bowel movements because she is not eating. Her appetite continues poor. They are angry with delays. They are angry that she does not feel well and express this in plaintive terms. They preferred not to go through another scan. She is scheduled for bone scan tomorrow. REVIEW OF SYSTEMS: Ivelisse has had occasional vomiting. It is not a prominent symptom. She just has no appetite. She is not on any opioid analgesics. It was difficult for her to remember the names of her medicines, though her has an excellent list and keeps close track of what she is supposed to be taking. We reviewed the med list, confirming she has been taking the demeclocycline and trying the Megace. PHYSICAL EXAMINATION: Weight 40 kg, down 3 kg in 1 month, temperature 97.5, blood pressure 112/70, heart rate 64, respiratory rate 20, O2 sat 97%. The patient is a frail-appearing slender older woman in no distress. Respiratory: Decreased breath sounds right upper lung field. Clear to auscultation left upper and lower lung diaz. Clear to auscultation right lower lung diaz. No wheezes or rales heard. Cardiac: S1, S2, regular rate and rhythm. Abdomen: Exquisitely tender, nondistended. The left adrenalectomy incision is clean, dry, intact, and minimally tender, but the right lower quadrant is quite tender. Ivelisse barely would allow me to examine her epigastrium, upper quadrants and lower quadrants. Extremities: No edema. Lymph nodes: Deferred. LABS: WBC 15, hemoglobin 13, hematocrit 41, platelets 463, neutrophil percent 91. IMPRESSION: Metastatic squamous cell carcinoma of lung involving brain, adrenal metastases, and primary dominant right upper lobe lung mass, status post full brain RT with generalized malaise, evidence of SIADH, constipation, and now with surgical abdomen on exam approximately 2 weeks following left adrenalectomy. 1. I recommended a STAT abdomen and pelvis CT with p.o. and IV contrast to make sure Ivelisse does not have a postsurgical infection. I am quite concerned given the belly exam today. She and her staunchly resisted Ivelisse's set up with different tests and so forth, understandably. She did agree, however, to cancel the bone scan and have the abdomen and pelvis study instead 2. I have already contacted Dr. Pham to make him aware of the exam today this morning and of the plan for the scan the next day. 3. Barring an acute abdomen on CT or need for immediate surgical intervention and/or any other suspicious new finding on abdomen and pelvis CT, will plan for Ivelisse to begin systemic chemotherapy early next week. 4. I will verbally relay scan results as soon as they are available to Ivelisse and her . TIME STATEMENT: 40 minutes [id number] with the patient, more than 50% involved in discussing her many different issues, fielding her complaints, explaining the rationale for a STAT abdomen and pelvis study, explaining my concern about infection in the abdomen, discussing systemic chemotherapy at their request, and reviewing risks, benefits, side effects, and potential complications, as well as alternatives, answering the patient's and her 's questions, reviewing her medications, and reviewing treatment of constipation if that is what is demonstrated on imaging. Electronically Signed by Breanne Irizarry MD 12/31/2018 07:07 P DD: Breanne Irizarry MD 12/29/2018 11:16 A DT: sri 12/30/2018 10:33 A CC: MD Camille Mccann MD
[2019-01-03] MEDS ORDERED: PANT-23 PO (12:18)
[2019-01-03] MEDS ORDERED: SENO8.6T5 PO (12:18)
[2019-01-03] MEDS ORDERED: [UNRECOGNIZED DRUG - CODE] PO (12:18)
[2019-01-03] MEDS ORDERED: MEGE40SU5 PO (12:18)
[2019-01-03] MEDS ORDERED: DEXA4TA PO (12:18)
[2019-01-03] MEDS ORDERED: COLA50CA5 PO (12:18)
[2019-01-07] MEDS ORDERED: META1POW PO (10:43)
[2019-01-07] MEDS ORDERED: VALA500T5 PO (10:43)
[2019-01-07] MEDS ORDERED: COLA100C5 PO (10:43)
[2019-01-07] MEDS ORDERED: KLOR10TA76 PO (10:43)
[2019-01-07] MEDS ORDERED: FLEETOIL PR (10:43)
[2019-01-07] MEDS ORDERED: PROC10TA4 PO (12:08)
[2019-01-07] MEDS ORDERED: ONDA8TAB10 PO (12:08)
== END 2019-01-26 ==
LOC: M ONCR 07:47
PROVIDERS: ATTEND Radiology Radiation Oncology
DX: C79.31 Secondary malignant neoplasm of brain (principal); C34.31 Malignant neoplasm of lower lobe, right bronchus or lung

== ENCOUNTER → 2018-12-29 | Outpatient (CLI) | payer MEDICARE ==
[~2018-12-29] MED LIST changes: +COLA50CA5 PO; +DEXA4TA PO; +FLEETOIL PR; +GASTROGRAFIN SOLUTION 30ML (Q9963) As Ordered ONE; +ISOVUE-370 76% 100ML VIAL (Q9967) As Ordered ONE; +KLOR10TA76 PO; +MEGE40SU5 PO; +META1POW PO; +ONDA8TAB7 PO; +PANT-23 PO; +PROC10TA4 PO; +SENO8.6T5 PO; +VALA500T5 PO; +[UNRECOGNIZED DRUG - CODE] PO
--- NOTE | 2018-12-29 10:23 | REP ---
Clinical: Right lower quadrant pain. Technique: Axial contrast enhanced images from the lung bases to the pubic symphysis with coronal and sagittal re-formations using oral (per protocol) and 100 ml Isovue 370 intravenous contrast material. Delayed images of the abdomen obtained. Findings: The patient is noted to be status post partial left adrenalectomy with prominent low density change to the left adrenal gland and adjacent fat stranding which may or may not represent normal postsurgical changes. Current examination also demonstrates small amount of free fluid surrounding the tail of the pancreas with a new well-defined fluid collection just superior to the tail of the pancreas insinuating in the gastrosplenic space measuring roughly 3.5 cm maximal diameter and these findings may represent pancreatitis with pseudocyst or postsurgical changes due to the above mentioned partial left adrenalectomy Fatty infiltration to the liver noted without focal hepatic lesion. Spleen, pancreas, gallbladder, right adrenal gland and bilateral kidneys appear normal. The enteric system demonstrates moderate to significant fecal stasis consistent with constipation and possible ileus. No bowel obstruction. Normal terminal ileum and appendix identified in the right lower quadrant. Pelvis demonstrates normal bladder and evidence for prior hysterectomy. No significant ascites. No free air. No obvious adenopathy. Abdominal aorta demonstrates atherosclerotic changes without aneurysm or dissection. Musculoskeletal structures demonstrate age-related changes without focal osseous abnormality. Lung bases demonstrate chronic fibroatelectatic changes at the right base. Impression: 1. Presumed postsurgical changes involving the left upper quadrant surrounding the left adrenal gland. 2. Small amount of peripancreatic fluid surrounding the tail of the pancreas as well as a new discrete fluid collection adjacent to the tail of pancreas extending cranially to the gastrosplenic space and measuring 3.5 cm maximal diameter. Differential diagnosis would include postsurgical changes related to the above-mentioned adrenalectomy and/or pancreatitis with pseudocyst formation. 3. Moderate to significant fecal stasis and presumed constipation. Ileus cannot be excluded. Electronically Signed by Domingo Tee MD 12/29/2018 10:15 A
== END ==
LOC: M RAD 08:19
PROVIDERS: ATTEND Internal Medicine Medical Oncology
DX: Z90.89 Acquired absence of other organs (principal); G89.18 Other acute postprocedural pain
CPT/HCPCS: 74177; Q9963; Q9967

== ENCOUNTER 2019-01-03 08:23 | Inpatient (IN) | payer MEDICARE ==
[~2019-01-03] VITALS: Ht 152.4 cm; Wt 37.3 kg
[2019-01-03] MEDS ORDERED: MORPHINE 4 MG/ML 1ML VIAL/SYRINGE (J2270) IV ONE ×2 (08:45→10:45)
[2019-01-03] MEDS ORDERED: NS 1,000 ML IV SCH (08:46)
[2019-01-03] MEDS: MULTIVITAMINS/MINERALS THERAP 1 TAB PO SCH (09:00)
[2019-01-03] MEDS: FOLIC ACID 1 MG TAB PO SCH (09:00)
[2019-01-03 09:11] LABS: BASO % 0.1 % (0.0-1.0); EOS # 0.1 10^3/uL (0.0-0.50); EOS % 0.4 % (0.0-3.0); HEMATOCRIT 40.4 % (36.0-47.0); HEMOGLOBIN 14.1 g/dl (12.0-15.5); LYMPH # 0.8 10^3/uL (1.5-4.5); LYMPH % 6.7 % (24.0-44.0); MEAN CORPUSCULAR HEMOGLOBIN 38.1 pg (27.0-33.0); MEAN CORPUSCULAR HGB CONC 34.9 g/dl (32.0-36.5); MEAN CORPUSCULAR VOLUME 109.2 fl (80.0-96.0); MONO # 0.5 10^3/uL (0.0-0.8); MONO % 4.5 % (0.0-5.0); NEUTROPHILS # 10.3 10^3/uL (1.8-7.7); NEUTROPHILS % 87.7 % (36.0-66.0); PLATELET COUNT, AUTOMATED 360 10^3/uL (150-450); WHITE BLOOD COUNT 11.7 10^3/uL (4.0-10.0)
[2019-01-03 09:40] LABS: INR 0.96; PROTHROMBIN TIME 12.5 SECONDS (11.8-14.0)
[2019-01-03 09:41] LABS: PARTIAL THROMBOPLASTIN TIME 24.9 SECONDS (25.0-38.4)
--- NOTE | 2019-01-03 09:41 | REP ---
CHEST, TWO VIEWS: Two views of the chest are performed and compared to prior study of 12/17/2018. Rounded cavitary lesion in the right lower lobe is unchanged. No new infiltrate is seen. Heart is normal in size. Mediastinal silhouette is unchanged. There is mild calcification of the thoracic aorta. There are mild degenerative changes of the spine. IMPRESSION: No acute pulmonary disease. No change in cavitating lesion right lower lobe. Electronically Signed by Blaine Denise MD 01/04/2019 09:40 A
[2019-01-03 09:48] LABS: ALBUMIN 3.3 GM/DL (3.2-5.2); ALT/SGPT 180 U/L (12-78); BILIRUBIN,DIRECT 0.4 MG/DL (0.0-0.2); BILIRUBIN,TOTAL 1.5 MG/DL (0.2-1.0); BLOOD UREA NITROGEN 38 MG/DL (7-18); CALCIUM LEVEL 8.6 MG/DL (8.8-10.2); CARBON DIOXIDE LEVEL 28 MEQ/L (21-32); CHLORIDE LEVEL 103 MEQ/L (98-107); CK-MB VALUE MASS < 1.0 NG/ML (<3.6); CPK CREATINE PHOSPHOKINASE 49 U/L (26-192); CREATININE FOR GFR 0.58 MG/DL (0.55-1.30); GLOMERULAR FILTRATION RATE > 60.0 (>45); GLUCOSE, FASTING 81 MG/DL (70-100); LIPASE 51 U/L (73-393); MB/CK RELATIVE INDEX 2.04 (< OR =4); POTASSIUM SERUM 4.9 MEQ/L (3.5-5.1); SODIUM LEVEL 139 MEQ/L (136-145); TOTAL PROTEIN 6.1 GM/DL (6.4-8.2)
[2019-01-03] MEDS ORDERED: ISOVUE-370 76% 100ML VIAL (Q9967) As Ordered ONE (10:21)
--- NOTE | 2019-01-03 11:18 | REP ---
CT ABDOMEN AND PELVIS WITH IV CONTRAST: TECHNIQUE: Axial contrast enhanced images from the lung bases to the pubic symphysis using 100 mL Isovue 370 intravenous contrast material with multiplanar reformations. Visualized lung bases demonstrate fibroatelectatic change. No mass is seen in the liver. Spleen and right adrenal are unremarkable. Left adrenal demonstrates low density nodular thickening unchanged since the prior CT of 12/29/2018. There are again a few loculated areas of fluid surrounding the pancreatic body and tail. The largest is just inferior to the body of the pancreas approximately 3.8 cm in maximum diameter with two smaller locules just anterior to this. A small left loculated fluid is seen anterior to the tale of the pancreas with a rounded area of fluid between the stomach and spleen approximately 3.4 cm in diameter. These findings are unchanged. The kidneys are unremarkable. There is no abdominal aortic aneurysm. There is no adenopathy. There is free air. No significant free fluid is seen. No bowel wall thickening is seen. There is no evidence of appendicitis. There is large amount of fecal material throughout the colon with a very large amount of fecal material in the rectum. I cannot exclude fecal impaction. There is mild presacral edema. A small amount of air is seen in the urinary bladder presumably from catheterization. A few sigmoid diverticula are present. There is a small hiatal hernia. IMPRESSION: Large amount of fecal material throughout the colon, but particularly, there is a very large amount of fecal material in the rectum. This could indicate fecal impaction. Loculated areas of fluid in the peripancreatic region are stable. Electronically Signed by Blaine Denise MD 01/04/2019 09:43 A
[2019-01-03] MEDS ORDERED: MEGE40SU5 PO (12:18)
[2019-01-03] MEDS ORDERED: PANT-23 PO (12:18)
[2019-01-03] MEDS ORDERED: SENO8.6T5 PO (12:18)
[2019-01-03] MEDS ORDERED: COLA50CA5 PO (12:18)
[2019-01-03] MEDS ORDERED: [UNRECOGNIZED DRUG - CODE] PO (12:18)
[2019-01-03] MEDS ORDERED: DEXA4TA PO (12:18)
[2019-01-03] MEDS ORDERED: traMADol 50 MG TAB PO PRN (15:00)
[2019-01-03] MEDS ORDERED: ACETAMINOPHEN TAB 650MG DOSE (2X325MG) PO PRN (15:00)
[2019-01-03] MEDS ORDERED: LORazepam 2 MG TAB PO PRN (15:00)
[2019-01-03 16:05] VITALS: BP 127/62
--- NOTE | 2019-01-03 16:22 | HPEPDOC ---
[facility] Medical History & Physical Date of Admission Jan 03, 2019 Date of Service: Jan 03, 2019 Primary Care Physician: SOFÍA ESPINAL MD Attending Physician: RANGEL GARY MD History and Physical CHIEF COMPLAINT: Patient presented to the ED with acute abdominal pain. HISTORY OF PRESENT ILLNESS: A 68 year old female presented to the ED with acute abdominal pain. Most of the history was provided by the ; patient is a poor historian. Patient's stated that the abdominal pain has been going on for one months duration and has been accompanied by a diminished appetite. Her pain has progressively gotten worse and occurred last night with the worst intensity. In addition to abdominal pain she has also been experiencing very loose stools and has soiled many garments. Patient has been reporting weakness with ambulation in relation to her decreased appetite. Her stated that he heard his fall forward in a nearby hallway this morning and found her in a prone position. He attributes this fall to weakness in her LE. She scraped her elbow while bracing the fall; is not sure if she hit her head during the fall. She denies doing anything that makes the pain better or worse; the morphine that she has been prescribed does not "touch the pain". She states that the abdominal pain is constant but was unable to rate the pain on a scale of 1- 10 or describe the quality of the pain. Patient denies n/v, palpitations, night sweats, fever, chills, CP, or SOB. Patient has a history of noncompliance. PAST MEDICAL HISTORY: 1. HTN 2. DLP 3. COPD 4. Squamous cell carcinoma of lung 5. Adrenal mass 6. Brain metastases 7. Myeloproliferative disease/polycythemia vera 8. Anxiety 9. Depression 10. ETOH abuse 11. Tobacco use 12. s/p Herpes zoster with post herpetic neuralgia 13. SIADH 14. Status post adrenalectomy PAST SURGICAL HISTORY: 1. Left Adrenalectomy 11/30/18 2. Percutaneous excisional adrenal biopsy 12/14 SOCIAL HISTORY: Marital status: Resides in: [facility] Children: unknown Employment: unknown Tobacco use:1 pack/day smoker ETOH: 3-4 pints of beer daily Illicit drug use: unknown FAMILY HISTORY: Reviewed with patient and no pertinent diseases known ALLERGIES: Please see below. HOME MEDICATIONS: Please see below. PHYSICAL EXAMINATION: VITAL SIGNS: See below GENERAL APPEARANCE: Patient is alert but in distress. Pain was limiting her ability to answer questions. Patient was laying in Left lateral decubitus position initially but changed position multiple times without relief of pain. HEENT: Dry mucous membranes. NC/AT, poor dentition, patient does not have her dentures. CARDIOVASCULAR: RRR, Normal S1S2. No murmurs, rubs, or gallops noted. LUNGS: No wheezing heard on inspiration ABDOMEN: Soft, tender to palpation in RLQ, no rigidity or guarding, hyperactive bowel sounds noted. Fecal stasis and patient is wearing a diaper. NEUROLOGIC: No focal defects noted EXTREMITIES: Shallow abrasion noted on Left upper extremity distal to olecranon. PSYCHIATRIC: Depression and anxiety. Patient had difficulty finding words and was unable to answer many questions. LABORATORY DATA: See below. IMAGING: CT Abdomen/Pelvis: Large amount of fecal material throughout the colon, but particularly, there is a very large amount of fecal material in the rectum. This could indicate fecal impaction. Loculated areas of fluid in the peripancreatic region are stable. Chest X-ray: No acute pulmonary disease. No change in cavitating lesion right lower lobe MICROBIOLOGY: Please see below. 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 Patient has a history of non compliance. . PLAN: 1. Abdominal pain 2/2 fecal impaction as read on CT -Administer mineral oil enema and stool softeners -Received 8mg of Morphine in ER with little relief -Managing pain with tramadol and acetaminophen - Patient refused manual disimpaction -Increase fiber intake -Administer IV fluids -Patient on clear liquid diet -c/w pantoprazole 2. Mechanical fall likely 2/2 to decreased oral intake, weak LE, deconditioning, or ETOH use. -CT of Head recommended; patient is hesitant. We will continue to encourage. - Patient is aware of risks / benefits of not receiving CT head - has verbalized understanding 3. ETOH abuse- drinks 3-4 pints of Guinness per day -transaminitis likely 2/2 to ETOH use or fecal impaction. Trend LFTs -Administer folate, thiamine, and a multivitamin -CIWA protocol -Patient currently stable 4. Decreased oral intake 2/2 to bowel pain -Patient can drink Ensure to supplement calories -Clear liquid diet -IV fluids -c/w megestrol 5. HTN -Patient's BP is stable 6. DLP -Begin simvastatin 7. COPD 8. Depression/Anxiety 9. Polycythemia Vera -c/w hydroxyurea 10. 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 SIADH c/w demeclocycline 12. Tobacco dependence -Give patient a nicotine patch 13. Status post herpetic neuralgia 14. Status post adrenalectomy -chronic dexamethasone use Disposition: Admitting patient and providing pain management. Administer mineral oil enema and stool softeners to lessen fecal impaction. Continue encouraging patient to undergo a Head CT. Patient has a history of noncompliance. DNI, is requesting time to think about CPR. Vital Signs Vital Signs Date Time Temp Pulse Resp B/P (MAP) Pulse Ox O2 Delivery O2 Flow Rate FiO2 01/03/19 13:45 73 18 126/71 (89) 99 Room Air 01/03/19 08:45 98.1 Laboratory Data Labs 24H Laboratory Tests 2 01/03/19 08:55: Immature Granulocyte % (Auto) 0.6, White Blood Count 11.7H, Red Blood Count 3.70L, Hemoglobin 14.1, Hematocrit 40.4, Mean Corpuscular Volume 109.2H, Mean Corpuscular Hemoglobin 38.1H, Mean Corpuscular Hemoglobin Concent 34.9, Red Cell Distribution Width 16.0H, Platelet Count 360, Neutrophils (%) (Auto) 87.7H, L ymphocytes (%) (Auto) 6.7L, Monocytes (%) (Auto) 4.5, Eosinophils (%) (Auto) 0.4, Basophils (%) (Auto) 0.1, Neutrophils # (Auto) 10.3H, Lymphocytes # (Auto) 0.8L, Monocytes # (Auto) 0.5, Eosinophils # (Auto) 0.1, Basophils # (Auto) 0.0, Nucleated Red Blood Cells % (auto) 0.0, Prothrombin Time 12.5, Prothromb Time International Ratio 0.96, Activated Partial Thromboplast Time 24.9L, Anion Gap 8, Glomerular Filtration Rate > 60.0, Calcium Level 8.6L, Aspartate Amino Transf (AST/SGOT) 40H, Alanine Aminotransferase (ALT/SGPT) 180H, Alkaline Phosphatase 81, Total Bilirubin 1.5H, Direct Bilirubin 0.4H, Total Creatine Kinase 49, Creatine Kinase MB < 1.0, Creatine Kinase MB Relative Index 2.04, Troponin I 0.10, Total Protein 6.1L, Albumin 3.3, Albumin/Globulin Ratio 1.18, Lipase 51L 01/03/19 09:55: Urine Color LESLIE, Urine Appearance HAZY, Urine pH 6.0, Urine Specific Powell 1.024, Urine Protein NEGATIVE, Urine Glucose (UA) NEGATIVE, Urine Ketones 1+H, Urine Blood NEGATIVE, Urine Nitrite NEGATIVE, Urine Bilirubin NEGATIVE, Urine Urobilinogen 2.0H, Urine Leukocyte Esterase NEGATIVE, Urine WBC (Auto) 0, Urine RBC (Auto) 1, Urine Hyaline Casts (Auto) 0, Urine Bacteria (Auto) NEGATIVE, Urine Squamous Epithelial Cells 0, Urine Sperm (Auto) CBC/BMP Laboratory Tests 01/03/19 08:55 Red Blood Count 3.70 L, Mean Corpuscular Volume 109.2 H, Mean Corpuscular Hemoglobin 38.1 H, Mean Corpuscular Hemoglobin Concent 34.9, Red Cell Distribution Width 16.0 H, Neutrophils (%) (Auto) 87.7 H, Lymphocytes (%) (Auto) 6.7 L, Monocytes (%) (Auto) 4.5, Eosinophils (%) (Auto) 0.4, Basophils (%) (Auto) 0.1, Neutrophils # (Auto) 10.3 H, Lymphocytes # (Auto) 0.8 L, Monocytes # (Auto) 0.5, Eosinophils # (Auto) 0.1, Basophils # (Auto) 0.0 Home Medications Scheduled Aspirin (Aspirin EC) 81 Mg Tab, 81 MG PO DAILY Demeclocycline HCl (Demeclocycline HCl) 150 Mg Tablet, 150 MG PO BID Dexamethasone (Dexamethasone) 4 Mg Tablet, 4 MG PO TID STATES SHE ONLY HAS A COUPLE PILLS LEFT AND IS UNSURE IF SHE IS TO CONTINUE TAKING OR NOT. Docusate Sodium (Colace Clear) 50 Mg Capsule, 50 MG PO BID Hydroxyurea (Hydroxyurea) 500 Mg Cap, 500 MG PO DAILY Lovastatin (Lovastatin) 40 Mg Tab, 40 MG PO QHS Megestrol Acetate (Megestrol Acetate) 400 Mg/10 Ml Oral.susp, 10 ML PO DAILY Pantoprazole Sodium (Pantoprazole Sodium) 40 Mg Tablet.dr, 40 MG PO QHS Sennosides (Senokot) 8.6 Mg Tablet, 1 TAB PO BID Allergies Coded Allergies: sulfamethoxazole (Verified Adverse Reaction, Intermediate, nausea/vomittin, lethargy, 01/03/19) trimethoprim (Verified Adverse Reaction, Intermediate, nausea/vomiting, lethargy, 01/03/19) A-FIB/CHADSVASC A-FIB History Current/History of A-Fib/PAF?: No GME ATTESTATION GME ATTESTATION My faculty preceptor for this patient encounter was physically present during the encounter and was fully available. All aspects of the patient interview, examination, medical decision making process, and medical care plan development were reviewed and approved by the faculty preceptor. The faculty preceptor is aware and concurs with the plan as stated in the body of this note and will attest to such by his/her cosignature. ATTENDING NOTE I, Rangel Gary, have independently examined this patient and performed my own physical exam, as well as reviewed the documentation and edited where necessary. I have discussed in detail with the resident / student the findings and plan of treatment as documented by the resident / student and edited their note. I agree with their findings and treatment plan and have edited their documentation. I will continue to follow the patient during this hospital stay. JESSICA ROBLERO OMS-3 Jan 03, 2019 16:22 RANGEL GARY MD Jan 03, 2019 17:06
[2019-01-03] MEDS: FLEET OIL RETENTION ENEMA PR SCH (16:34)
[2019-01-03] MEDS: MORPHINE 4 MG/ML 1ML VIAL/SYRINGE (J2270) IV PRN (16:49)
--- NOTE | 2019-01-03 16:49 | ECGEPIP ---
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
[2019-01-03 18:00] VITALS: BP 127/62
[2019-01-03] MEDS: NS 1,000 ML IV SCH (20:35)
[2019-01-03] MEDS: valACYclovir HCL 500 MG TAB PO SCH (20:36)
[2019-01-03] MEDS: PANTOPRAZOLE 40MG TAB (PROTONIX) PO SCH (20:36)
[2019-01-03] MEDS: THIAMINE 100 MG TAB PO SCH (20:36)
[2019-01-03] MEDS: SIMVASTATIN 40 MG TAB PO SCH (20:36)
[2019-01-03 22:00] VITALS: BP 116/65
[2019-01-03 22:40] VITALS: BP 129/62
[2019-01-03] MEDS: DEMECLOCYCLINE 150 MG TAB PO SCH (23:58)
[2019-01-04] MEDS: NS 1,000 ML IV SCH ×2 (01:00→06:13)
[2019-01-04] MEDS: MORPHINE 4 MG/ML 1ML VIAL/SYRINGE (J2270) IV PRN ×4 (03:19→13:52)
[2019-01-04 06:00] VITALS: BP 163/80
[2019-01-04 06:05] VITALS: BP 141/76
[2019-01-04 06:12] LABS: HEMATOCRIT 42.1 % (36.0-47.0); HEMOGLOBIN 14.2 g/dl (12.0-15.5); MEAN CORPUSCULAR HGB CONC 33.7 g/dl (32.0-36.5); MEAN CORPUSCULAR VOLUME 112.6 fl (80.0-96.0); PLATELET COUNT, AUTOMATED 333 10^3/uL (150-450); RED BLOOD COUNT 3.74 10^6/uL (4.00-5.40); WHITE BLOOD COUNT 10.1 10^3/uL (4.0-10.0)
[2019-01-04 06:36] LABS: ALBUMIN 3.1 GM/DL (3.2-5.2); ALT/SGPT 146 U/L (12-78); BILIRUBIN,TOTAL 1.3 MG/DL (0.2-1.0); BLOOD UREA NITROGEN 26 MG/DL (7-18); CALCIUM LEVEL 8.5 MG/DL (8.8-10.2); CARBON DIOXIDE LEVEL 21 MEQ/L (21-32); CHLORIDE LEVEL 111 MEQ/L (98-107); CREATININE FOR GFR 0.36 MG/DL (0.55-1.30); GLOMERULAR FILTRATION RATE > 60.0 (>45); GLUCOSE, FASTING 55 MG/DL (70-100); POTASSIUM SERUM 4.5 MEQ/L (3.5-5.1); SODIUM LEVEL 131 MEQ/L (136-145); TOTAL PROTEIN 5.7 GM/DL (6.4-8.2)
[2019-01-04 07:09] VITALS: BP 141/76
[2019-01-04] MEDS: MEGESTROL SUSP 400 MG/10 ML UDC PO SCH (09:00)
[2019-01-04] MEDS: FLEET OIL RETENTION ENEMA PR SCH (09:00)
[2019-01-04] MEDS: FOLIC ACID 1 MG TAB PO SCH (09:13)
[2019-01-04] MEDS: valACYclovir HCL 500 MG TAB PO SCH ×3 (09:13→20:58)
[2019-01-04] MEDS: MULTIVITAMINS/MINERALS THERAP 1 TAB PO SCH (09:14)
[2019-01-04] MEDS: HYDROXYUREA 500 MG CAP PO SCH (09:14)
[2019-01-04] MEDS: ASPIRIN 81 MG ENTERIC TAB PO SCH (09:14)
[2019-01-04] MEDS: THIAMINE 100 MG TAB PO SCH ×2 (09:14→20:58)
[2019-01-04] MEDS: DEMECLOCYCLINE 150 MG TAB PO SCH ×2 (09:14→20:58)
[2019-01-04] MEDS: D5W/0.45% SODIUM CHLORIDE 1,000 ML IV SCH ×2 (10:30→23:07)
[2019-01-04] MEDS ORDERED: MAGNESIUM CITRATE 300 ML BTL PO ONE (12:00)
[2019-01-04] MEDS: BISACODYL 10 MG SUPP PR SCH ×2 (13:52→21:00)
[2019-01-04 14:00] VITALS: BP 124/69
[2019-01-04] MEDS: SENOKOT S TAB PO SCH (15:14)
[2019-01-04] MEDS: DOCUSATE SODIUM 100 MG CAP PO SCH ×2 (15:14→20:57)
[2019-01-04] MEDS: METAMUCIL (PSYLLIUM) PACKET PO SCH ×2 (15:14→20:57)
--- NOTE | 2019-01-04 17:40 | IPNPDOC ---
Subjective Date Seen The patient was seen on 01/04/19 at 9:45. Subjective Chief Complaint/HPI Patient is a 68yo female who presented to the ED yesterday (01/03/19) with the chief complaint of severe, diffuse abdominal pain that had worsened over the past month. Abdominal CT showed impacted feces. 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 Pt was admitted to [facility] last month for adrenalectomy. Pt also sustained a mechanical fall at home while walking that was witnessed by pt's . Pt landed on her arms and forehead and chose not to undergo a head CT. Pt was seen and examined while lying in bed. Pt was in moderate distress due to severe abdominal pain. Pt reports no acute events overnight. Pt's overall pain level is unchanged from yesterday. Following mineral oil enema yesterday afternoon, pt is still having abdominal pain 10 but is decreased from yesterday's 10/10. Pt had a couple liquid BM's overnight that did not bring symptomatic relief. Pt is on a clear liquid diet but has a diminished thirst and has had only minimal fluid ingestion when taking pill medications. The majority of today's interval history was taken from the pt's (Gill yair). General: Reports: Fatigue; Denies: Chills, Night Sweats, Normal Appetite Constitutional: Denies: Fever Pulmonary: Denies: Dyspnea, Cough Cardiovascular: Denies: Chest Pain, Palpitations, Edema Gastrointestinal: Reports: Abdominal Pain (see above), Constipation (see above); Denies: Nausea, Vomiting Genitourinary: Denies: Dysuria, Frequency Objective Physical Examination General Exam: Positive: Alert, Moderate Distress (due to diffuse, severe abdominal pain) Eye Exam: Positive: Other Eye Symptoms (right eye producing tears); Negative: Sclera icteric ENT Exam: Positive: Atraumatic; Negative: Mucous membr. moist/pink (dry) Neck Exam: Positive: Supple, +2 carotid pulse wo bruit Chest Exam: Positive: Clear to auscultation, Diminished; Negative: Rhonchi, Wheezing Heart Exam: Positive: Regular Rhythm, Normal S1, Normal S2; Negative: Murmurs, Rubs Abdomen Exam: Positive: BS Hyperactive, Tenderness (to light touch in lower quadrants b/l); Negative: Hepatospenomegaly Extremity Exam: Positive: Normal pulses (2+ radial b/l); Negative: Edema Skin Exam: Positive: Rash (varicella zoster outbreak following left iliac crest progressing into gluteal cleft. Erythematous with no active weeping or draining on inspection. Non-tender to palpation of affected area.), Other skin issue (varicella zoster outbreak following left iliac crest progressing into gluteal cleft. Erythematous with no active weeping or draining on inspection) Neuro Exam: Positive: Sensation Intact (to light touch UE and LE, b/l); Negative: Normal Speech (difficulty responding to questions beyond a single word) Psych Exam: Negative: Oriented x 3 (oriented to self only) Assessment /Plan Assessment 1. Metastatic squamous cell carcinoma of the lung with left adrenal metastasis s/p adrenalectomy and multifocal intracranial metastases -spoke with pt's medical oncologist - - Dr. Breanne Irizaryr - - this afternoon, 01/04/19. Updated Dr. Irizarry on pt's status and our care plan and goals for current hospitalization. Dr. Irizarry would like to see pt for f/u during the week of 01/10- 01/14/19 to begin palliative chemotherapy and resume palliative brain radiation treatments. We will update Dr. Irizarry through her nurse navigator when pt is d/c. -c/w morphine, tramadol, and tylenol for pain 2. abdominal pain likely 2/2 impacted stool due to constipation -pt underwent successful manual disimpaction this afternoon -c/w colace, magnesium citrate, senokot s, dulcolax, and metamucil to encourage further passage of stool -discussed with pt's that current opiate pain medications likely are contributing to pt's constipation 3. Disseminated shingles -c/w Valacyclovir (day2) -continue to monitor affected site for changes in presentation 4. JAK2-positive myeloproliferative neoplasm -c/w hydroxyurea as prescribed by heme-onc 5. malnutrition likely 2/2 to decreased appetite due to cancer state and history of alcohol abuse -c/w thiamine, multivitamin, and folic acid regimen -c/w protonix for possible reflux symptoms from constipation/impacted stool to improve fluid ingestion 6. Underweight, BMI 16.6 -ensure and megace ordered for nutrition and appetite stimulation, respectively 7. Polycythemia vera -c/w hydroxyurea regimen 8.SIADH -c/w demeclocycline 9. s/p left adrenalectomy -c/w decadron administration 10.Depression/anxiety -c/w lorazepam 11. DLP -c/w simvastatin 12. COPD -pt's last measured O2 sat was 95% on RA and does not appear to be in any respiratory distress I saw and evaluated the patient. I agree with the findings and plan of care as d ocumented in the resident's note Plan/VTE VTE Prophylaxis Ordered?: Yes VS, I&O, 24H, Fishbone Vital Signs/I&O Vital Signs Date Time Temp Pulse Resp B/P (MAP) Pulse Ox O2 Delivery O2 Flow Rate FiO2 01/04/19 14:19 16 01/04/19 07:09 64 141/76 (97) 01/04/19 06:00 97.0 95 01/03/19 15:45 Room Air I&O- Last 24 Hours up to 6 AM 01/04/19 06:00 Intake Total 2110 ml Output Total 0 ml Balance 2110 ml Laboratory Data 24H LABS Laboratory Tests 2 01/03/19 18:37: 01/04/19 05:58: Nucleated Red Blood Cells % (auto) 0.0, Anion Gap -1L, Glomerular Filtration Rate > 60.0, Blood Urea Nitrogen 26H, Creatinine 0.36L, Sodium Level 131#L, Potassium Level 4.5, Chloride Level 111H, Carbon Dioxide Level 21, Calcium Level 8.5L, Aspartate Amino Transf (AST/SGOT) 36, Alanine Aminotransferase (ALT/SGPT) 146H, Alkaline Phosphatase 75, Total Bilirubin 1.3H, Total Protein 5.7L, Albumin 3.1L, Albumin/Globulin Ratio 1.19 CBC/BMP Laboratory Tests 01/04/19 05:58 Red Blood Count 3.74 L, Mean Corpuscular Volume 112.6 H, Mean Corpuscular Hemoglobin 38.0 H, Mean Corpuscular Hemoglobin Concent 33.7, Red Cell Distribution Width 16.0 H, Calcium Level 8.5 L, Aspartate Amino Transf (AST/SGOT) 36, Alanine Aminotransferase (ALT/SGPT) 146 H, Alkaline Phosphatase 75, Total Bilirubin 1.3 H, Total Protein 5.7 L, Albumin 3.1 L JONNATHAN FRITZ PGY-1 Jan 04, 2019 14:57 CHANA ALVAREZ MD Jan 05, 2019 10:27
[2019-01-04] MEDS: PANTOPRAZOLE 40MG TAB (PROTONIX) PO SCH (20:58)
[2019-01-04] MEDS: SIMVASTATIN 40 MG TAB PO SCH (20:58)
[2019-01-04 22:00] VITALS: BP 148/72
[2019-01-05 06:00] VITALS: BP 146/72
[2019-01-05 06:27] LABS: HEMATOCRIT 35.8 % (36.0-47.0); HEMOGLOBIN 12.6 g/dl (12.0-15.5); MEAN CORPUSCULAR HEMOGLOBIN 37.5 pg (27.0-33.0); MEAN CORPUSCULAR HGB CONC 35.2 g/dl (32.0-36.5); MEAN CORPUSCULAR VOLUME 106.5 fl (80.0-96.0); PLATELET COUNT, AUTOMATED 328 10^3/uL (150-450); RED BLOOD COUNT 3.36 10^6/uL (4.00-5.40); WHITE BLOOD COUNT 10.8 10^3/uL (4.0-10.0)
[2019-01-05 06:50] LABS: ALBUMIN 2.7 GM/DL (3.2-5.2); ALT/SGPT 98 U/L (12-78); BILIRUBIN,TOTAL 1.5 MG/DL (0.2-1.0); BLOOD UREA NITROGEN 9 MG/DL (7-18); CALCIUM LEVEL 8.2 MG/DL (8.8-10.2); CARBON DIOXIDE LEVEL 23 MEQ/L (21-32); CHLORIDE LEVEL 100 MEQ/L (98-107); CREATININE FOR GFR 0.39 MG/DL (0.55-1.30); GLOMERULAR FILTRATION RATE > 60.0 (>45); GLUCOSE, FASTING 183 MG/DL (70-100); POTASSIUM SERUM 3.3 MEQ/L (3.5-5.1); SODIUM LEVEL 130 MEQ/L (136-145); TOTAL PROTEIN 5.5 GM/DL (6.4-8.2)
[2019-01-05] MEDS: MEGESTROL SUSP 400 MG/10 ML UDC PO SCH (09:00)
[2019-01-05] MEDS: THIAMINE 100 MG TAB PO SCH ×2 (09:00→23:00)
[2019-01-05] MEDS ORDERED: POTASSIUM CHLORIDE 10 MEQ SR TABLET PO ONE (09:00)
[2019-01-05] MEDS: METAMUCIL (PSYLLIUM) PACKET PO SCH ×2 (09:00→22:59)
[2019-01-05] MEDS: MULTIVITAMINS/MINERALS THERAP 1 TAB PO SCH (09:00)
[2019-01-05] MEDS: SENOKOT S TAB PO SCH (09:00)
[2019-01-05] MEDS: FLEET OIL RETENTION ENEMA PR SCH (09:00)
[2019-01-05] MEDS: FOLIC ACID 1 MG TAB PO SCH (09:00)
[2019-01-05] MEDS: DEMECLOCYCLINE 150 MG TAB PO SCH ×2 (09:35→22:59)
[2019-01-05] MEDS: HYDROXYUREA 500 MG CAP PO SCH (09:35)
[2019-01-05] MEDS: ASPIRIN 81 MG ENTERIC TAB PO SCH (09:36)
[2019-01-05] MEDS: valACYclovir HCL 500 MG TAB PO SCH ×3 (09:36→23:00)
[2019-01-05] MEDS: DOCUSATE SODIUM 100 MG CAP PO SCH ×2 (09:37→22:59)
[2019-01-05] MEDS: D5W/0.45% SODIUM CHLORIDE 1,000 ML IV SCH ×2 (11:44→23:00)
[2019-01-05 14:00] VITALS: BP 135/74
[2019-01-05 22:00] VITALS: BP 140/65
--- NOTE | 2019-01-05 22:06 | IPNPDOC ---
Subjective Date Seen The patient was seen on 01/05/19. Subjective Chief Complaint/HPI Ivelisse was seen and examined this morning lying upright in bed with her present. She states that while her overall pain is still significant, she experienced considerable improvement in her abdominal pain from yesterday after manual disimpaction. After disimpaction, she has had 2 liquid bowel movements.. She also had 2 incontinent voids overnight. She is still struggling to consume fluids and take her pill medications. Overall, her cognition is much improved from yesterday and she is able to respond to questions with multiple words and good eye contact. Her most recent BNP showed decrease in serum potassium to 3.3. She was ordered for 40 mEq 1 time dose of potassium chloride by mouth. Constitutional: Denies: Chills, Fever Pulmonary: Denies: Dyspnea, Cough Cardiovascular: Denies: Chest Pain, Palpitations Gastrointestinal: Reports: Abdominal Pain (significantly diminished post- disimpaction); Denies: Nausea, Vomiting Musculoskeletal: Reports: Muscle Pain Objective Physical Examination General Exam: Positive: Alert, Moderate Distress (due to diffuse, severe abdominal pain) Eye Exam: Positive: Other Eye Symptoms (right eye producing tears); Negative: Sclera icteric ENT Exam: Positive: Atraumatic; Negative: Mucous membr. moist/pink (dry) Neck Exam: Positive: Supple, +2 carotid pulse wo bruit Chest Exam: Positive: Clear to auscultation, Diminished; Negative: Rhonchi, Wheezing Heart Exam: Positive: Regular Rhythm, Normal S1, Normal S2; Negative: Murmurs, Rubs Abdomen Exam: Positive: BS Hyperactive, Tenderness (to light touch in lower quadrants b/l); Negative: Hepatospenomegaly Extremity Exam: Positive: Normal pulses (2+ radial b/l); Negative: Edema Skin Exam: Positive: Rash (varicella zoster outbreak following left iliac crest progressing into gluteal cleft. Erythematous with no active weeping or draining on inspection. Non-tender to palpation of affected area.), Other skin issue (varicella zoster outbreak following left iliac crest progressing into gluteal cleft. Erythematous with no active weeping or draining on inspection) Neuro Exam: Positive: Sensation Intact (to light touch UE and LE, b/l); Negative: Normal Speech (difficulty responding to questions beyond a single word) Psych Exam: Negative: Oriented x 3 (oriented to self only) Assessment /Plan Assessment 1. 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 Breanne Irizarry would like f/u during the week of 01/10-01/14/19 to begin palliative chemotherapy and resume palliative brain radiation treatments -update Dr. Irizarry through her nurse navigator when pt is d/c. -c/w morphine, tramadol, and tylenol for pain 2. abdominal pain likely 2/2 impacted stool due to constipation -pt underwent successful manual disimpaction -c/w colace, magnesium citrate, senokot s, dulcolax, and metamucil to encourage further passage of stool -discussed with pt's that current opiate pain medications likely are c ontributing to pt's constipation 3. Disseminated shingles -c/w Valacyclovir (day2) -continue to monitor affected site for changes in presentation 4. JAK2-positive myeloproliferative neoplasm -c/w hydroxyurea as prescribed by heme-onc 5. malnutrition likely 2/2 to decreased appetite due to cancer state and history of alcohol abuse -c/w thiamine, multivitamin, and folic acid regimen -c/w protonix for possible reflux symptoms from constipation/impacted stool to improve fluid ingestion 6. Underweight, BMI 16.6 -ensure and megace ordered for nutrition and appetite stimulation, respectively 7. Polycythemia vera -c/w hydroxyurea regimen 8.SIADH -c/w demeclocycline 9. s/p left adrenalectomy -c/w decadron administration 10.Depression/anxiety -c/w lorazepam 11. DLP -c/w simvastatin 12. COPD -stable I saw and evaluated the patient. I agree with the findings and plan of care as documented in the above note Plan/VTE VTE Prophylaxis Ordered?: Yes VS, I&O, 24H, Fishbone Vital Signs/I&O Vital Signs Date Time Temp Pulse Resp B/P (MAP) Pulse Ox O2 Delivery O2 Flow Rate FiO2 01/05/19 14:00 77 135/74 01/05/19 14:00 98.0 17 94 01/03/19 15:45 Room Air I&O- Last 24 Hours up to 6 AM 01/05/19 06:00 Intake Total 1020 ml Output Total 0 ml Balance 1020 ml Laboratory Data 24H LABS Laboratory Tests 2 01/05/19 06:08: Nucleated Red Blood Cells % (auto) 0.0, Anion Gap 7L, Glomerular Filtration Rate > 60.0, Blood Urea Nitrogen 9#, Creatinine 0.39L, Sodium Level 130L, Potassium Level 3.3#L, Chloride Level 100, Carbon Dioxide Level 23, Calcium Level 8.2L, Aspartate Amino Transf (AST/SGOT) 19, Alanine Aminotransferase (ALT/SGPT) 98H, Alkaline Phosphatase 66, Total Bilirubin 1.5H, Total Protein 5.5L, Albumin 2.7L, Albumin/Globulin Ratio 0.96L CBC/BMP Laboratory Tests 01/05/19 06:08 Red Blood Count 3.36 L, Mean Corpuscular Volume 106.5 H, Mean Corpuscular Hemoglobin 37.5 H, Mean Corpuscular Hemoglobin Concent 35.2, Red Cell Distribution Width 15.3 H, Calcium Level 8.2 L, Aspartate Amino Transf (AST/SGOT) 19, Alanine Aminotransferase (ALT/SGPT) 98 H, Alkaline Phosphatase 66, Total Bilirubin 1.5 H, Total Protein 5.5 L, Albumin 2.7 L JONNATHAN FRITZ PGY-1 Jan 05, 2019 22:06 CHANA ALVAREZ MD Jan 07, 2019 13:22
[2019-01-05] MEDS: SIMVASTATIN 40 MG TAB PO SCH (23:00)
[2019-01-05] MEDS: PANTOPRAZOLE 40MG TAB (PROTONIX) PO SCH (23:00)
[2019-01-06 06:00] VITALS: BP 146/68
[2019-01-06 06:18] LABS: HEMATOCRIT 34.7 % (36.0-47.0); HEMOGLOBIN 12.2 g/dl (12.0-15.5); MEAN CORPUSCULAR HEMOGLOBIN 37.5 pg (27.0-33.0); MEAN CORPUSCULAR HGB CONC 35.2 g/dl (32.0-36.5); MEAN CORPUSCULAR VOLUME 106.8 fl (80.0-96.0); PLATELET COUNT, AUTOMATED 319 10^3/uL (150-450); RED BLOOD COUNT 3.25 10^6/uL (4.00-5.40); WHITE BLOOD COUNT 9.5 10^3/uL (4.0-10.0)
[2019-01-06 06:52] LABS: ALBUMIN 2.6 GM/DL (3.2-5.2); ALT/SGPT 80 U/L (12-78); BILIRUBIN,TOTAL 1.1 MG/DL (0.2-1.0); BLOOD UREA NITROGEN 5 MG/DL (7-18); CALCIUM LEVEL 8.1 MG/DL (8.8-10.2); CARBON DIOXIDE LEVEL 23 MEQ/L (21-32); CHLORIDE LEVEL 103 MEQ/L (98-107); CREATININE FOR GFR 0.44 MG/DL (0.55-1.30); GLOMERULAR FILTRATION RATE > 60.0 (>45); GLUCOSE, FASTING 156 MG/DL (70-100); POTASSIUM SERUM 3.3 MEQ/L (3.5-5.1); SODIUM LEVEL 133 MEQ/L (136-145); TOTAL PROTEIN 5.6 GM/DL (6.4-8.2)
[2019-01-06] MEDS: METAMUCIL (PSYLLIUM) PACKET PO SCH ×2 (09:00→20:56)
[2019-01-06] MEDS ORDERED: POTASSIUM CHLORIDE 10 MEQ SR TABLET PO ONE (09:00)
[2019-01-06] MEDS: MULTIVITAMINS/MINERALS THERAP 1 TAB PO SCH (09:00)
[2019-01-06] MEDS: MEGESTROL SUSP 400 MG/10 ML UDC PO SCH (09:00)
[2019-01-06] MEDS: FLEET OIL RETENTION ENEMA PR SCH (09:00)
[2019-01-06] MEDS: D5W/0.45% SODIUM CHLORIDE 1,000 ML IV SCH ×2 (09:53→20:56)
[2019-01-06] MEDS: ASPIRIN 81 MG ENTERIC TAB PO SCH (09:53)
[2019-01-06] MEDS: SENOKOT S TAB PO SCH (09:53)
[2019-01-06] MEDS: THIAMINE 100 MG TAB PO SCH (09:53)
[2019-01-06] MEDS: DOCUSATE SODIUM 100 MG CAP PO SCH ×2 (09:53→20:56)
[2019-01-06] MEDS: FOLIC ACID 1 MG TAB PO SCH (09:53)
[2019-01-06] MEDS: valACYclovir HCL 500 MG TAB PO SCH ×3 (09:53→20:55)
[2019-01-06] MEDS: HYDROXYUREA 500 MG CAP PO SCH (09:53)
[2019-01-06] MEDS: DEMECLOCYCLINE 150 MG TAB PO SCH ×2 (09:54→20:55)
[2019-01-06 14:00] VITALS: BP 131/70
[2019-01-06] MEDS ORDERED: HYDROCORTISONE 100 MG/2 ML VIAL (J1720 PER 1) IV SCH (16:00)
--- NOTE | 2019-01-06 20:40 | IPNPDOC ---
Subjective Date Seen The patient was seen on 01/06/19 at 10:15. Subjective Chief Complaint/HPI Ivelisse is a 68yo female who presented to the ED on 01/03/19 with the chief complaint of severe, diffuse abdominal pain that had worsened over the past month. Abdominal CT showed impacted feces. 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 Pt was admitted to [facility] last month for adrenalectomy. Pt also sustained a mechanical fall at home while walking that was witnessed by pt's . Pt landed on her arms and forehead and chose not to undergo a head CT. Ivelisse was seen and examined while lying in bed this morning. She feels she is more alert and stronger than the last 2 days. She is eating and drinking now. She states that with the assistance of a walker, she ambulates to the bathroom to urinate. She also had a couple liquid BMs since yesterday's visit. She rates her current overall pain at "zero," and is inquiring about when she will go home. Constitutional: Denies: Chills, Fever ENT: Denies: Head Aches, Dysphagia Pulmonary: Denies: Dyspnea, Cough Cardiovascular: Denies: Palpitations, Edema Gastrointestinal: Denies: Nausea, Vomiting, Abdominal Pain Genitourinary: Denies: Dysuria Neurological: Denies: Numbness Objective Physical Examination General Exam: Positive: Alert, Cooperative, No Acute Distress Eye Exam: Positive: Other Eye Symptoms ENT Exam: Positive: Atraumatic Neck Exam: Positive: Supple, +2 carotid pulse wo bruit; Negative: Other (No pain to palpation of cervical spine) Chest Exam: Positive: Clear to auscultation, Diminished; Negative: Rhonchi, Wheezing Heart Exam: Positive: Regular Rhythm, Normal S1, Normal S2; Negative: Murmurs, Rubs Abdomen Exam: Positive: Soft Extremity Exam: Positive: Normal pulses (2+ radial b/l); Negative: Edema Skin Exam: Positive: Rash (varicella zoster outbreak following left iliac crest progressing into gluteal cleft. Erythematous with no active weeping or draining on inspection. Non-tender to palpation of affected area.) Neuro Exam: Positive: Normal Speech, Sensation Intact (to light touch UE and LE, b/l) Psych Exam: Positive: Mental status NL, Oriented x 3 Assessment /Plan Assessment 1. 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 Breanne Irizarry would like f/u during the week of 01/10-01/14/19 to begin palliative chemotherapy and resume palliative brain radiation treatments -update Dr. Irizarry through her nurse navigator when pt is d/c. -c/w morphine, tramadol, and tylenol for pain -Patient will continue to work with physical therapy and occupational therapy to improve her strength and ambulation. This remains a significant challenge for her due to her metastatic cancer. 2. abdominal pain likely 2/2 impacted stool due to constipation (resolved) -pt underwent successful manual disimpaction on January 04 -c/w colace, magnesium citrate, senokot s, dulcolax, and metamucil to encourage further passage of stool 3. Disseminated shingles -c/w Valacyclovir (day3) -continue to monitor affected site for changes in presentation 4. JAK2-positive myeloproliferative neoplasm -c/w hydroxyurea as prescribed by heme-onc 5. malnutrition likely 2/2 to decreased appetite due to cancer state and history of alcohol abuse -patient's appetite and thirst has improved from the previous 2 days as she is now drinking and eating -c/w thiamine, multivitamin, and folic acid regimen -c/w protonix for possible reflux symptoms from constipation/impacted stool to improve fluid ingestion 6. Underweight, BMI 16.6 -ensure and megace ordered for nutrition and appetite stimulation, respectively 7. Polycythemia vera -c/w hydroxyurea regimen 8.SIADH -c/w demeclocycline 9. s/p left adrenalectomy -c/w decadron administration 10.Depression/anxiety -c/w lorazepam 11. DLP -c/w simvastatin 12. COPD -stable I saw and evaluated the patient. I agree with the findings and plan of care as documented in the above note Plan/VTE VTE Prophylaxis Ordered?: Yes VS, I&O, 24H, Fishbone Vital Signs/I&O Vital Signs Date Time Temp Pulse Resp B/P (MAP) Pulse Ox O2 Delivery O2 Flow Rate FiO2 01/06/19 14:00 98.5 66 18 131/70 (90) 98 01/03/19 15:45 Room Air I&O- Last 24 Hours up to 6 AM 7/11/19 06:00 Intake Total 1080 ml Output Total 8 ml Balance 1072 ml Laboratory Data 24H LABS Laboratory Tests 2 01/06/19 06:00: Nucleated Red Blood Cells % (auto) 0.0, Anion Gap 7L, Glomerular Filtration Rate > 60.0, Blood Urea Nitrogen 5L, Creatinine 0.44L, Sodium Level 133L, Potassium Level 3.3L, Chloride Level 103, Carbon Dioxide Level 23, Calcium Level 8.1L, Aspartate Amino Transf (AST/SGOT) 12, Alanine Aminotransferase (ALT/SGPT) 80H, Alkaline Phosphatase 62, Total Bilirubin 1.1H, Total Protein 5.6L, Albumin 2.6L, Albumin/Globulin Ratio 0.87L CBC/BMP Laboratory Tests 01/06/19 06:00 Red Blood Count 3.25 L, Mean Corpuscular Volume 106.8 H, Mean Corpuscular Hemoglobin 37.5 H, Mean Corpuscular Hemoglobin Concent 35.2, Red Cell Distribution Width 15.6 H, Calcium Level 8.1 L, Aspartate Amino Transf (AST/ SGOT) 12, Alanine Aminotransferase (ALT/SGPT) 80 H, Alkaline Phosphatase 62, Total Bilirubin 1.1 H, Total Protein 5.6 L, Albumin 2.6 L JONNATHAN FRITZ PGY-1 Jan 06, 2019 20:31 CHANA ALVAREZ MD Jan 07, 2019 15:01
[2019-01-06] MEDS: SIMVASTATIN 40 MG TAB PO SCH (20:55)
[2019-01-06] MEDS: PANTOPRAZOLE 40MG TAB (PROTONIX) PO SCH (20:56)
[2019-01-06 22:00] VITALS: BP 130/64
[2019-01-07 06:00] VITALS: BP 139/64
[2019-01-07 06:30] LABS: HEMATOCRIT 35.4 % (36.0-47.0); HEMOGLOBIN 12.8 g/dl (12.0-15.5); MEAN CORPUSCULAR HEMOGLOBIN 38.1 pg (27.0-33.0); MEAN CORPUSCULAR HGB CONC 36.2 g/dl (32.0-36.5); MEAN CORPUSCULAR VOLUME 105.4 fl (80.0-96.0); PLATELET COUNT, AUTOMATED 350 10^3/uL (150-450); RED BLOOD COUNT 3.36 10^6/uL (4.00-5.40); WHITE BLOOD COUNT 10.7 10^3/uL (4.0-10.0)
[2019-01-07 07:06] LABS: ALBUMIN 2.8 GM/DL (3.2-5.2); ALT/SGPT 71 U/L (12-78); BILIRUBIN,TOTAL 0.9 MG/DL (0.2-1.0); BLOOD UREA NITROGEN 6 MG/DL (7-18); CALCIUM LEVEL 8.1 MG/DL (8.8-10.2); CARBON DIOXIDE LEVEL 23 MEQ/L (21-32); CHLORIDE LEVEL 103 MEQ/L (98-107); CREATININE FOR GFR 0.49 MG/DL (0.55-1.30); GLOMERULAR FILTRATION RATE > 60.0 (>45); GLUCOSE, FASTING 125 MG/DL (70-100); POTASSIUM SERUM 3.4 MEQ/L (3.5-5.1); SODIUM LEVEL 132 MEQ/L (136-145); TOTAL PROTEIN 5.7 GM/DL (6.4-8.2)
[2019-01-07] MEDS ORDERED: POTASSIUM CHLORIDE 10 MEQ SR TABLET PO SCH (09:00)
[2019-01-07] MEDS: MEGESTROL SUSP 400 MG/10 ML UDC PO SCH (09:19)
[2019-01-07] MEDS: SENOKOT S TAB PO SCH (09:19)
[2019-01-07] MEDS: ASPIRIN 81 MG ENTERIC TAB PO SCH (09:19)
[2019-01-07] MEDS: METAMUCIL (PSYLLIUM) PACKET PO SCH (09:20)
[2019-01-07] MEDS: HYDROXYUREA 500 MG CAP PO SCH (09:20)
[2019-01-07] MEDS: MULTIVITAMINS/MINERALS THERAP 1 TAB PO SCH (09:20)
[2019-01-07] MEDS: DEMECLOCYCLINE 150 MG TAB PO SCH (09:20)
[2019-01-07] MEDS: valACYclovir HCL 500 MG TAB PO SCH (09:20)
[2019-01-07] MEDS: FOLIC ACID 1 MG TAB PO SCH (09:20)
[2019-01-07] MEDS: DOCUSATE SODIUM 100 MG CAP PO SCH (09:20)
[2019-01-07] MEDS: FLEET OIL RETENTION ENEMA PR SCH (09:21)
[2019-01-07 10:07] LABS: HSV-1 DNA Negative (Negative); HSV-2 DNA Negative (Negative); VARICELLA ZOSTER VIRUS PCR Negative (Negative)
[2019-01-07] MEDS ORDERED: COLA100C5 PO (10:43)
[2019-01-07] MEDS ORDERED: FLEETOIL PR (10:43)
[2019-01-07] MEDS ORDERED: META1POW PO (10:43)
[2019-01-07] MEDS ORDERED: KLOR10TA76 PO (10:43)
[2019-01-07] MEDS ORDERED: VALA500T5 PO (10:43)
[2019-01-07] MEDS ORDERED: PROC10TA4 PO (12:08)
[2019-01-07] MEDS ORDERED: ONDA8TAB10 PO (12:08)
--- NOTE | 2019-01-07 13:56 | IPNPDOC ---
Subjective Date Seen The patient was seen on 01/07/19. Subjective Chief Complaint/HPI Ivelisse is a 68yo female who presented to the ED on 01/03/19 with the chief complaint of severe, diffuse abdominal pain that had worsened over the past month. Abdominal CT showed impacted feces. 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 Pt was admitted to [facility] last month for adrenalectomy. Pt also sustained a mechanical fall at home while walking that was witnessed by pt's . Pt landed on her arms and forehead and chose not to undergo a head CT. Ivelisse was seen and examined this morning lying upright in bed. She denies any incidence overnight and no longer has any abdominal pain. She rates her overall pain level at "zero." Her energy level continues to improve, she has been ambulating to and from the bathroom with the assistance of a walker, and she is working with both PT and OT. She is eating and drinking with no issues. Her bowel movements continue to be loose. General: Reports: Normal Appetite Constitutional: Denies: Fever ENT: Denies: Head Aches, Dysphagia Pulmonary: Denies: Dyspnea, Cough Cardiovascular: Denies: Chest Pain, Palpitations Gastrointestinal: Denies: Nausea, Vomiting, Abdominal Pain Genitourinary: Denies: Dysuria, Frequency Musculoskeletal: Denies: Muscle Pain Neurological: Denies: Weakness, Numbness Objective Physical Examination General Exam: Positive: Alert, No Acute Distress ENT Exam: Positive: Atraumatic Neck Exam: Positive: Supple, +2 carotid pulse wo bruit Chest Exam: Positive: Clear to auscultation, Diminished; Negative: Rhonchi, Wheezing Heart Exam: Positive: Regular Rhythm, Normal S1, Normal S2; Negative: Murmurs, Rubs Abdomen Exam: Positive: Soft; Negative: Tenderness Extremity Exam: Positive: Normal pulses (2+ radial, posterior tibial b/l); Negative: Edema Skin Exam: Positive: Rash (varicella zoster outbreak following left iliac crest progressing into gluteal cleft. Erythematous with no active weeping or draining on inspection. Non-tender to palpation of affected area.) Neuro Exam: Positive: Sensation Intact (to light touch UE and LE, b/l) Psych Exam: Positive: Mental status NL, Mood NL, Oriented x 3 Assessment /Plan Assessment 1. 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 Breanne Irizarry, on 01/04/19. Updated Dr. Irizarry on pt's status and our care plan and goals for current hospitalization. Dr. Irizarry would like to see pt for f/u during the week of 01/10-01/14/19 to begin palliative chemotherapy and resume palliative brain radiation treatments. We will update Dr. Irizarry through her nurse navigator when pt is d/c. -c/w morphine, tramadol, and tylenol for pain 2. abdominal pain likely 2/2 impacted stool due to constipation (resolved) -pt underwent successful manual disimpaction on 01/04. -c/w colace, magnesium citrate, senokot s, dulcolax, and metamucil to encourage further passage of stool -discussed with pt's that current opiate pain medications likely are contributing to pt's constipation 3. Disseminated shingles -c/w Valacyclovir (day 5) -continue to monitor affected site for changes in presentation 4. JAK2-positive myeloproliferative neoplasm -c/w hydroxyurea as prescribed by heme-onc 5. malnutrition likely 2/2 to decreased appetite due to cancer state and history of alcohol abuse -c/w thiamine, multivitamin, and folic acid regimen -c/w protonix for possible reflux symptoms from constipation/impacted stool to improve fluid ingestion 6. Underweight, BMI 16.6 -ensure and megace ordered for nutrition and appetite stimulation, respectively 7. Polycythemia vera -c/w hydroxyurea regimen 8.SIADH -c/w demeclocycline 9. s/p left adrenalectomy -c/w decadron administration 10.Depression/anxiety -c/w lorazepam 11. DLP -c/w simvastatin 12. COPD -pt's last measured O2 sat was 95% on RA and does not appear to be in any respiratory distress Plan/VTE VTE Prophylaxis Ordered?: Yes VS, I&O, 24H, Fishbone Vital Signs/I&O Vital Signs Date Time Temp Pulse Resp B/P (MAP) Pulse Ox O2 Delivery O2 Flow Rate FiO2 01/07/19 06:00 97.1 69 18 139/64 (89) 96 01/03/19 15:45 Room Air I&O- Last 24 Hours up to 6 AM 01/07/19 06:00 Intake Total 1290 ml Output Total 0 ml Balance 1290 ml Laboratory Data 24H LABS Laboratory Tests 2 01/07/19 05:59: Nucleated Red Blood Cells % (auto) 0.0, Anion Gap 6L, Glomerular Filtration Rate > 60.0, Blood Urea Nitrogen 6L, Creatinine 0.49L, Sodium Level 132L, Potassium Level 3.4L, Chloride Level 103, Carbon Dioxide Level 23, Calcium Level 8.1L, Aspartate Amino Transf (AST/SGOT) 16, Alanine Aminotransferase (ALT/SGPT) 71, Alkaline Phosphatase 63, Total Bilirubin 0.9, Total Protein 5.7L, Albumin 2.8L, Albumin/Globulin Ratio 0.97L CBC/BMP Laboratory Tests 01/07/19 05:59 Red Blood Count 3.36 L, Mean Corpuscular Volume 105.4 H, Mean Corpuscular Hemoglobin 38.1 H, Mean Corpuscular Hemoglobin Concent 36.2, Red Cell Di stribution Width 15.2 H, Calcium Level 8.1 L, Aspartate Amino Transf (AST/SGOT) 16, Alanine Aminotransferase (ALT/SGPT) 71, Alkaline Phosphatase 63, Total Bilirubin 0.9, Total Protein 5.7 L, Albumin 2.8 L JONNATHAN FRITZ PGY-1 Jan 07, 2019 13:56 LILY BOWER DO Jan 07, 2019 15:10
--- NOTE | 2019-01-07 16:00 | DS.PDOC ---
Discharge Summary General Date of Admission Jan 03, 2019 at 13:07 Date of Discharge 01/07/2019 Primary Care Physician: SOFÍA ESPINAL MD Attending Physician: CHANA ALVAREZ MD Discharge Summary PROCEDURES PERFORMED DURING STAY: manual fecal disimpaction ADMITTING DIAGNOSES: 1. Abdominal pain DISCHARGE DIAGNOSES: 1. Fecal impaction, resolved 2. Disseminated shingles 3. 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 JAK2-positive myeloproliferative neoplasm 5. Protein calorie malnutrition 6. Underweight, BMI 16.6 7. Polycythemia vera 8. SIADH 9. s/p left adrenalectomy 10. Depression/anxiety 11. DLP 12. COPD COMPLICATIONS/CHIEF COMPLAINT: Acute, severe abdominal pain. HISTORY OF PRESENT ILLNESS: Ivelisse is a 68 yo female who presented to the ED on January 03 with acute abdominal pain. Her abdominal pain has been going on for one month and is accompanied by a diminished appetite. Her pain has progressively gotten worse and was especially intense last night. In addition to abdominal pain she has also been experiencing very loose stools and has soiled many garments. Patient reports weakness with ambulation that is due to to her decreased appetite. Her stated that he heard his fall forward in a nearby hallway this morning and found her in a prone position. He attributes this fall to weakness in her LE. She scraped her elbow while bracing the fall; is not sure if she hit her head during the fall. She denies doing anything that makes the pain better or worse; the morphine that she has been prescribed does not "touch the pain." She states that the abdominal pain is constant but was unable to rate the pain on a scale of 1-10 or describe the quality of her pain. She denies n/v, palpitations, night sweats, fever, chills, CP, or SOB. She has a history of noncompliance. *Patient is a poor historian due to her current medical state. As a result, the majority of her presenting history was supplied by her , Steffen. HOSPITAL COURSE: Ivelisse was admitted to the hospital with the chief complaint of abdominal pain due to severe fecal impaction visualized on CT. Disimpaction was initially attempted via medical means because she was resistant to manual disimpaction. After no bowel movement or pain relief was achieved with m edication, she consented to a manual disimpaction on 01/04 that was successful. She immediately experienced relief from her abdominal pain. She has had consistent liquid based bowel movement since disimpaction. After initially having no appetite and limited thirst over the first 2 days of her stay, she is now eating and drinking without any issues. She also developed a rash of disseminated shingles, began and administration of valacyclovir, and was put on airborne and contact precautions. Over the course of her hospital stay, the rash was non-tender to palpation and did not express weeping or discharge. She is currently on day 5 of valacyclovir and will continue administration for 2 more days at home. Her alertness and overall strength steadily improved throughout her hospital stay and she was subsequently cleared by both physical therapy and occupational therapy prior to hospital discharge. Her medical oncologist, Dr. Irizarry, was contacted and updated on her status. Dr. Irizarry would like to see her during the week of 01/10-01/14/2019 for a visit to discuss a plan of care moving forward for her cancer. DISCHARGE MEDICATIONS: Please see below. ALLERGIES: Please see below. PHYSICAL EXAMINATION ON DISCHARGE: VITAL SIGNS: Please see below. General Exam: Positive: Alert, Cooperative, No Acute Distress Eye Exam: Positive: Other Eye Symptoms ENT Exam: Positive: Atraumatic Neck Exam: Positive: Supple, +2 carotid pulse w/o bruit; Negative: Other (No pain to palpation of cervical spine) Chest Exam: Positive: Clear to auscultation, Diminished; Negative: Rhonchi, Wheezing Heart Exam: Positive: Regular Rhythm, Normal S1, Normal S2; Negative: Murmurs, Rubs Abdomen Exam: Positive: Soft Extremity Exam: Positive: Normal pulses (2+ radial b/l); Negative: Edema Skin Exam: Positive: Rash (varicella zoster outbreak following left iliac crest progressing into gluteal cleft. Erythematous with no active weeping or draining on inspection. Non-tender to palpation of affected area.) Neuro Exam: Positive: Normal Speech, Sensation Intact (to light touch UE and L E, b/l) Psych Exam: Positive: Mental status NL, Oriented x 3 LABORATORY DATA: Please see below. IMAGIN01/03/2019 Chest X-Ray- showed no acute pulmonary disease. No change in cavitating lesion of right lower lobe 01/03/2019 Abdomen/Pelvis CT showed a large amount of fecal material throughout the colon, but particularly, there is a very large amount of fecal material in the rectum. This could indicate fecal impaction. Loculated areas of fluid in the peripancreatic region are stable. PROGNOSIS: guarded given metastatic cancer ACTIVITY: [As tolerated]. DIET: as tolerated DISPOSITION: 01 Home, Self-Care. DISCHARGE INSTRUCTIONS: 1. Follow up with PCP in 1 week 2. Continue valtrex & bowel regimen as prescribed 3. Return to ER for emergency 4. Follow up with Dr. Irizarry DISCHARGE CONDITION: [Stable]. I saw and evaluated the patient. I agree with the findings and plan of care as documented in the documenters note. I spent 45 minutes coordinating this patient's discharge. Vital Signs/I&Os Vital Signs Date Time Temp Pulse Resp B/P (MAP) Pulse Ox O2 Delivery O2 Flow Rate FiO2 01/07/19 06:00 97.1 69 18 139/64 (89) 96 01/03/19 15:45 Room Air I&O- Last 24 Hours up to 6 AM 01/07/19 06:00 Intake Total 1290 ml Output Total 0 ml Balance 1290 ml Laboratory Data Labs 24H Laboratory Tests 2 01/07/19 05:59: Nucleated Red Blood Cells % (auto) 0.0, Anion Gap 6L, Glomerular Filtration Rate > 60.0, Blood Urea Nitrogen 6L, Creatinine 0.49L, Sodium Level 132L, Potassium Level 3.4L, Chloride Level 103, Carbon Dioxide Level 23, Calcium Level 8.1L, Aspartate Amino Transf (AST/SGOT) 16, Alanine Aminotransferase (ALT/SGPT) 71, Alkaline Phosphatase 63, Total Bilirubin 0.9, Total Protein 5.7L, Albumin 2.8L, Albumin/Globulin Ratio 0.97L CBC/BMP Laboratory Tests 01/07/19 05:59 Red Blood Count 3.36 L, Mean Corpuscular Volume 105.4 H, Mean Corpuscular Hemoglobin 38.1 H, Mean Corpuscular Hemoglobin Concent 36.2, Red Cell Distribution Width 15.2 H, Calcium Level 8.1 L, Aspartate Amino Transf (AST/SGOT) 16, Alanine Aminotransferase (ALT/SGPT) 71, Alkaline Phosphatase 63, Total Bilirubin 0.9, Total Protein 5.7 L, Albumin 2.8 L Discharge Medications Scheduled Aspirin (Aspirin EC) 81 Mg Tab, 81 MG PO DAILY, (Reported) Demeclocycline HCl (Demeclocycline HCl) 150 Mg Tablet, 150 MG PO BID, (Reported) Dexamethasone (Dexamethasone) 4 Mg Tablet, 4 MG PO TID, (Reported) STATES SHE ONLY HAS A COUPLE PILLS LEFT AND IS UNSURE IF SHE IS TO CONTINUE TAKING OR NOT. Docusate Sodium (Colace) 100 Mg Capsule, 200 MG PO BID Hydroxyurea (Hydroxyurea) 500 Mg Cap, 500 MG PO DAILY, (Reported) Lovastatin (Lovastatin) 40 Mg Tab, 40 MG PO QHS, (Reported) Megestrol Acetate (Megestrol Acetate) 400 Mg/10 Ml Oral.susp, 10 ML PO DAILY, (Reported) Mineral Oil (Mineral Oil Enema) 133 Ml Enema, 1 EA PA DAILY Pantoprazole Sodium (Pantoprazole Sodium) 40 Mg Tablet.dr, 40 MG PO QHS, (Reported) Potassium Chloride (Klor-Con M10) 10 Meq Tab.er.prt, 40 MEQ PO DAILY Psyllium Husk/Aspartame (Metamucil Fiber Singles Packet) 3.4 Gm Powd.pack, 1 PKT PO BID Valacyclovir HCl (Valacyclovir) 500 Mg Tablet, 1,000 MG PO TID Scheduled PRN Ondansetron HCl (Ondansetron HCl) 8 Mg Tablet, 8 MG PO Q6H PRN for NAUSEA OR VOMITING Prochlorperazine Maleate (Prochlorperazine Maleate) 10 Mg Tablet, 10 MG PO Q8H PRN for NAUSEA OR VOMITING Allergies Coded Allergies: sulfamethoxazole (Verified Adverse Reaction, Intermediate, nausea/vo mittin, lethargy, 01/03/19) trimethoprim (Verified Adverse Reaction, Intermediate, nausea/vomiting, lethargy, 01/03/19) JONNATHAN FRITZ PGY-1 Jan 07, 2019 14:30 CHANA ALVAREZ MD Jan 07, 2019 16:48
== END 2019-01-07 14:03 | disposition home health service (06) | DRG 389 ==
LOC: EDBD 08:23 → M ED 10:07 → M ED INP 13:07 → M MSPAV 16:00
PROVIDERS: ADMIT Internal Medicine; ATTEND Internal Medicine
DX: K56.41 Fecal impaction (principal); C34.90 Malignant neoplasm of unspecified part of unspecified bronchus or lung; C79.31 Secondary malignant neoplasm of brain; C79.70 Secondary malignant neoplasm of unspecified adrenal gland; E22.2 Syndrome of inappropriate secretion of antidiuretic hormone; Z68.1 Body mass index [BMI] 19.9 or less, adult; E46 Unspecified protein-calorie malnutrition; B02.7 Disseminated zoster; F10.10 Alcohol abuse, uncomplicated; F41.9 Anxiety disorder, unspecified; F32.9 Major depressive disorder, single episode, unspecified; J44.9 Chronic obstructive pulmonary disease, unspecified; D45 Polycythemia vera; Z91.19 Patient's noncompliance with other medical treatment and regimen; Z79.82 Long term (current) use of aspirin; Z79.899 Other long term (current) drug therapy; Z88.2 Allergy status to sulfonamides; Z88.8 Allergy status to other drugs, medicaments and biological substances; I10 Essential (primary) hypertension; F17.200 Nicotine dependence, unspecified, uncomplicated